=== PATIENT | female | born 1955 | race Hispanic/Latino ===

== ENCOUNTER 2017-02-20 12:24 | Emergency (ER) | payer OTHER ==
[2017-02-20] MEDS ORDERED: Sodium Chloride 0.9% 1,000 ML IV STA (12:40)
--- NOTE | 2017-02-20 12:45 | ED PDOC ---
Syncope/Near Syncope/Dizzyness Time Seen by Provider: 02/20/17 12:31 Chief Complaint (Nursing): Dizziness/Lightheaded Chief Complaint (Provider): Dizziness/Lightheaded History Per: Patient History/Exam Limitations: no limitations Onset/Duration Of Symptoms: Days (x3 days) Current Symptoms Are (Timing): Still Present Additional Complaint(s): 61 y/o female with a past medical history of hypertension and chronic obstructive pulmonary disease who presents to the emergency department via EMS after experiencing a syncopal episode at home associated with dizziness. Patient states she has been dizzy when standing and had fallen past out over the past three days. Reports she has been vomiting (had resolved since) with decreased intake of foods and fluids. States she has been taking hypertension and opioid pain medication. Denies diarrhea. Past Medical History Reviewed: Historical Data, Nursing Documentation, Vital Signs Vital Signs: Last Vital Signs Temp 97 F L 02/20/17 12:30 Pulse 94 H 02/20/17 12:30 Resp 20 02/20/17 12:30 BP 81/44 L 02/20/17 12:37 Pulse Ox 98 02/20/17 12:30 - Medical History PMH: Back Problems (chronic back pain), COPD, Hypercholesterolemia, Hyperlipidemia, Hypothyroidism - Surgical History Surgical History: Denies: CABG - Family History Family History: States: Unknown Family Hx - Immunization History Hx Tetanus Toxoid Vaccination: No Hx Influenza Vaccination: No Hx Pneumococcal Vaccination: No - Home Medications Home Medications: Ambulatory Orders Medication Instructions Recorded Ibuprofen [Motrin Tab] 600 mg PO Q8 PRN 08/04/16 Ibuprofen [Motrin] 600 mg PO Q8 PRN #30 tab 08/04/16 - Allergies Allergies/Adverse Reactions: Allergies Allergy/AdvReac Type Severity Reaction Status Date / Time No Known Allergies Allergy Verified 02/20/17 12:29 Review of Systems ROS Statement: Except As Marked, All Systems Reviewed And Found Negative Constitutional: Positive for: Other (Decreased appetite) Gastrointestinal: Positive for: Vomiting (had resolved since). Negative for: Diarrhea Neurological: Positive for: Dizziness Psych: Positive for: Other (Syncopal episode) Physical Exam - Reviewed Nursing Documentation Reviewed: Yes Vital Signs Reviewed: Yes - Physical Exam Appears: Positive for: Non-toxic, No Acute Distress Head Exam: Positive for: ATRAUMATIC, NORMOCEPHALIC Skin: Positive for: Normal Color, Warm, Dry ENT: Positive for: Normal ENT Inspection, Other (Dry Mucous Membranes). Negative for: Pharyngeal Erythema Neck: Positive for: Normal, Supple Cardiovascular/Chest: Positive for: Regular Rate, Rhythm. Negative for: Murmur Respiratory: Positive for: Normal Breath Sounds. Negative for: Accessory Muscle Use, Respiratory Distress Gastrointestinal/Abdominal: Positive for: Normal Exam, Soft. Negative for: Tenderness Extremity: Positive for: Normal ROM. Negative for: Pedal Edema, Swelling Neurologic/Psych: Positive for: Alert, Oriented, Gait (Steady). Negative for: Motor/Sensory Deficits, Other (No speech changes) - Laboratory Results Result Diagrams: 02/20/17 12:55 02/20/17 12:55 - ECG O2 Sat by Pulse Oximetry: 98 (RA) Pulse Ox Interpretation: Normal Medical Decision Making Medical Decision Making: Time: 12:31 Initial plan: --Head w/o contrast (CT) --Electrocardiogram Stat --COMP Metabolic Panel --Drug Screen, Urine Stat --ED Urine Dipstick (POC) Stat --EKG-ED (EDNURTX) Stat --CBC w. differential --Sodium Chloride 1,000 mls IV 1,000 mls/hr --Revaluation Advised pt of need for admission for hypotension, electrolyte abnormalities and syncope. Pt understands risks of leaving AMA including recurrent hypotension, syncope, head injury and . Agrees to return if sxs recurr and to f/u in clinic tomorrow. Pt advised to hold BP meds as well as opioids until seen by PMD Scribe Attestation: Documented by Alla Jimenez, acting as a scribe for Isidoro Thornton MD. Provider Scribe Attestation: All medical record entries made by the Scribe were at my direction and personally dictated by me. I have reviewed the chart and agree that the record accurately reflects my personal performance of the history, physical exam, medical decision making, and the department course for this patient. I have also personally directed, reviewed, and agree with the discharge instructions and disposition. Disposition - Clinical Impression Clinical Impression: Hypotension, Syncope, Electrolyte abnormality - Patient ED Disposition Is Patient to be Admitted: No - Disposition Disposition: Against Medical Advice Disposition Time: 14:31 Condition: FAIR Additional Instructions: Don't take blood pressure medication or Percocet until you see your doctor tomorrow. Instructions: Syncope (ED), Hypotension (ED)
[2017-02-20 13:01] LABS: BASO % 0.2 % (0.0-2.0); EOS # 0.1 K/uL (0.0-0.7); EOS % 0.9 % (0.0-4.0); HEMATOCRIT 36.1 % (34.0-47.0); LYMPH # 3.5 K/uL (1.0-4.3); LYMPH % 22.8 % (20.0-40.0); MEAN CELL VOLUME 89.1 fl (81.0-99.0); MEAN CORPUSCULAR HEMOGLOBIN 30.1 pg (27.0-31.0); MEAN CORPUSCULAR HGB CONC 33.8 g/dL (33.0-37.0); MEAN PLATELET VOLUME 7.1 fl (7.2-11.7); MONO % 6.5 % (0.0-10.0); NEUT # 10.6 K/uL (1.8-7.0); NEUT % 69.6 % (50.0-75.0); RED CELL DISTRIBUTION WIDTH 13.5 % (11.5-14.5); WHITE BLOOD COUNT 15.2 K/uL (4.8-10.8)
[2017-02-20 13:10] LABS: ALB/GLOB RATIO 1.2 (1.0-2.1); BILIRUBIN,TOTAL 0.8 mg/dl (0.2-1.3); CALCIUM 9.2 mg/dL (8.4-10.2); POTASSIUM 3.1 MMOL/L (3.6-5.0); TOTAL PROTEIN 7.2 G/DL (6.3-8.2)
--- NOTE | 2017-02-20 14:06 | CT ---
PROCEDURE: CT HEAD WITHOUT CONTRAST. HISTORY: r/o bleed COMPARISON: 11/06/2007 TECHNIQUE: Axial computed tomography images were obtained through the head/brain without intravenous contrast. Radiation dose: Total exam DLP = 651.35 mGy-cm. This CT exam was performed using one or more of the following dose reduction techniques: Automated exposure control, adjustment of the mA and/or kV according to patient size, and/or use of iterative reconstruction technique. FINDINGS: HEMORRHAGE: No intracranial hemorrhage. BRAIN: No mass effect or edema. No atrophy or chronic microvascular ischemic changes. VENTRICLES: Unremarkable. No hydrocephalus. CALVARIUM: Unremarkable. PARANASAL SINUSES: Unremarkable as visualized. No significant inflammatory changes. MASTOID AIR CELLS: Unremarkable as visualized. No inflammatory changes. OTHER FINDINGS: None. IMPRESSION: Normal CT of the Head. No intracranial mass, hemorrhage or evidence of acute infarct.
[2017-02-20] MEDS ORDERED: Potassium Chloride 20 mEq ER Tab PO ONE ×2 (14:19→14:52)
[2017-02-20 15:12] VITALS: BP 95/62; PULSE 80; RESP 18; TEMP 98; O2SAT 99
--- NOTE | 2017-02-21 08:40 | CARD ---
APPROVED REPORT EKG Measurement Heart [id number] CT 160P50 [id number] <Conclusion> Normal sinus rhythm Normal ECG
== END 2017-02-20 15:12 | disposition left against medical advice (07) ==
LOC: H.ER 12:24
DX: R55 Syncope and collapse (principal); I95.9 Hypotension, unspecified; E87.8 Other disorders of electrolyte and fluid balance, not elsewhere classified; E03.9 Hypothyroidism, unspecified; E78.00 Pure hypercholesterolemia, unspecified; J44.9 Chronic obstructive pulmonary disease, unspecified

== ENCOUNTER 2017-05-05 15:12 | Emergency (ER) | payer OTHER ==
[2017-05-05 15:18] VITALS: BP 89/57; PULSE 117; RESP 17; TEMP 98.6; O2SAT 94
[2017-05-05] MEDS ORDERED: Sodium Chloride 0.9% 1,000 ML IV STA (15:32)
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
[2017-05-05 16:24] LABS: BASO # 0.1 K/uL (0.0-0.2); BASO % 0.3 % (0.0-2.0); EOS # 0.1 K/uL (0.0-0.7); EOS % 0.3 % (0.0-4.0); HEMATOCRIT 39.6 % (34.0-47.0); LYMPH # 2.7 K/uL (1.0-4.3); LYMPH % 7.6 % (20.0-40.0); MEAN CELL VOLUME 88.1 fl (81.0-99.0); MEAN CORPUSCULAR HEMOGLOBIN 29.6 pg (27.0-31.0); MEAN CORPUSCULAR HGB CONC 33.6 g/dL (33.0-37.0); MEAN PLATELET VOLUME 7.3 fl (7.2-11.7); MONO # 1.9 K/uL (0.0-0.8); MONO % 5.4 % (0.0-10.0); NEUT # 30.4 K/uL (1.8-7.0); NEUT % 86.4 % (50.0-75.0); PLATELET COUNT 458 K/uL (130-400); RED CELL DISTRIBUTION WIDTH 13.6 % (11.5-14.5); WHITE BLOOD COUNT 35.2 K/uL (4.8-10.8)
[2017-05-05 16:37] LABS: ALB/GLOB RATIO 1.4 (1.0-2.1); BILIRUBIN,TOTAL 0.4 mg/dl (0.2-1.3); CALCIUM 9.4 mg/dL (8.4-10.2); POTASSIUM 3.3 MMOL/L (3.6-5.0); TOTAL PROTEIN 7.7 G/DL (6.3-8.2)
[2017-05-05] MEDS ORDERED: Potassium Chloride 20 mEq ER Tab PO STA (16:40)
[2017-05-05 16:55] LABS: NEUTROPHIL 84 % (42-75); TOTAL CELLS COUNTED 100
[2017-05-05 17:34] LABS: PARTIAL THROMBOPLASTIN TIME 28.4 Seconds (25.6-37.1)
--- NOTE | 2017-05-06 18:19 | CARD ---
APPROVED REPORT EKG Measurement Heart [id number] WA 132P72 [id number] <Conclusion> Sinus tachycardia Possible Left atrial enlargement Borderline ECG
== END 2017-05-05 18:48 | disposition left against medical advice (07) ==
LOC: H.ER 15:12
DX: K52.9 Noninfective gastroenteritis and colitis, unspecified (principal); F11.23 Opioid dependence with withdrawal; T40.2X5A Adverse effect of other opioids, initial encounter; Y92.9 Unspecified place or not applicable; F17.200 Nicotine dependence, unspecified, uncomplicated

== ENCOUNTER 2017-06-06 12:04 | Observation (INO) | payer OTHER ==
[2017-06-06] MEDS ORDERED: Morphine 4 MG/ML VIAL IV STA (12:29)
[2017-06-06] MEDS ORDERED: Sodium Chloride 0.9% 1,000 ML IV STA (12:29)
[2017-06-06 13:04] LABS: BASO # 0.1 K/uL (0.0-0.2); BASO % 1.3 % (0.0-2.0); EOS # 0.1 K/uL (0.0-0.7); EOS % 0.5 % (0.0-4.0); HEMATOCRIT 38.1 % (34.0-47.0); LYMPH # 2.6 K/uL (1.0-4.3); LYMPH % 23.3 % (20.0-40.0); MEAN CELL VOLUME 91.6 fl (81.0-99.0); MEAN CORPUSCULAR HEMOGLOBIN 30.4 pg (27.0-31.0); MEAN CORPUSCULAR HGB CONC 33.2 g/dL (33.0-37.0); MONO # 0.5 K/uL (0.0-0.8); MONO % 4.6 % (0.0-10.0); NEUT # 7.8 K/uL (1.8-7.0); NEUT % 70.3 % (50.0-75.0); RED CELL DISTRIBUTION WIDTH 14.4 % (11.5-14.5)
[2017-06-06 13:18] LABS: ALB/GLOB RATIO 1.3 (1.0-2.1); ALCOHOL SERUM < 10 mg/dl (0-10); ALKALINE PHOSPHATASE 76 U/L (38-126); ALT/SGPT 25 U/L (9-52); AST/SGOT 43 U/L (14-36); BILIRUBIN,TOTAL 0.4 mg/dl (0.2-1.3); BLOOD UREA NITROGEN 12 mg/dl (7-17); CALCIUM 9.7 mg/dL (8.4-10.2); CARBON DIOXIDE 20 mmol/L (22-30); CHLORIDE 106 mmol/L (98-107); GFR AFRICAN-AMERICAN > 60; GLUCOSE,RANDOM 85 mg/dL (65-105); POTASSIUM 4.1 MMOL/L (3.6-5.0); SODIUM 136 mmol/l (132-148); TOTAL PROTEIN 7.7 G/DL (6.3-8.2)
[2017-06-06 13:25] LABS: PARTIAL THROMBOPLASTIN TIME 42.6 Seconds (25.6-37.1)
--- NOTE | 2017-06-06 13:28 | ED PDOC ---
HPI: General Adult Time Seen by Provider: 06/06/17 12:20 Chief Complaint (Nursing): Back Pain Chief Complaint (Provider): back pain, possible tylenol OD History Per: Patient, Other (clinic Dr Figueroa) History/Exam Limitations: no limitations Current Symptoms Are (Timing): Still Present Recently: Treated By A Physician Additional Complaint(s): 61yo female history low back pain, on daily oxycodone (recently lowering dose from pain management), now presents from [facility] where she presented today c/ o ongoing low back pain and she took 48 extra strength tylenol tabs over the last 2 days due to pain. Denies intent to harm, states only took more tylenol because medication wasnt working. Past Medical History Reviewed: Historical Data, Nursing Documentation, Vital Signs Vital Signs: Last Vital Signs Temp 98.8 F 06/06/17 12:26 Pulse 64 06/06/17 13:49 Resp 18 06/06/17 12:32 BP 129/70 06/06/17 12:32 Pulse Ox 100 06/06/17 13:49 - Medical History PMH: Back Problems (chronic back pain), COPD, Hypercholesterolemia, Hyperlipidemia, Hypothyroidism - Surgical History Surgical History: Denies: CABG - Family History Family History: States: Unknown Family Hx - Social History Current smoker - smoking cessation education provided: Yes Drugs: Denies - Immunization History Hx Tetanus Toxoid Vaccination: No Hx Influenza Vaccination: No Hx Pneumococcal Vaccination: No - Home Medications Home Medications: Ambulatory Orders Medication Instructions Recorded Ibuprofen [Motrin Tab] 600 mg PO Q8 PRN 08/04/16 Ibuprofen [Motrin] 600 mg PO Q8 PRN #30 tab 08/04/16 - Allergies Allergies/Adverse Reactions: Allergies Allergy/AdvReac Type Severity Reaction Status Date / Time aspirin Allergy VOMITING Verified 05/05/17 15:15 Review of Systems ROS Statement: Except As Marked, All Systems Reviewed And Found Negative Constitutional: Negative for: Fever, Chills Cardiovascular: Negative for: Chest Pain, Palpitations Respiratory: Negative for: Cough, Shortness of Breath Gastrointestinal: Negative for: Nausea, Vomiting Musculoskeletal: Positive for: Back Pain. Negative for: Neck Pain, Shoulder Pain, Foot Pain Skin: Negative for: Rash, Lesions, Jaundice Neurological: Negative for: Weakness, Numbness, Headache Physical Exam - Reviewed Nursing Documentation Reviewed: Yes Vital Signs Reviewed: Yes - Physical Exam Appears: Positive for: Well, Non-toxic, No Acute Distress Head Exam: Positive for: ATRAUMATIC, NORMAL INSPECTION, NORMOCEPHALIC Skin: Positive for: Normal Color, Warm, DRY Eye Exam: Positive for: EOMI, Normal appearance, PERRL ENT: Positive for: Normal ENT Inspection Neck: Positive for: Normal, Painless ROM Cardiovascular/Chest: Positive for: Regular Rate, Rhythm Respiratory: Positive for: CNT, Normal Breath Sounds Gastrointestinal/Abdominal: Positive for: Bowel Sounds, Soft. Negative for: Tenderness, Guarding Back: Positive for: Decreased ROM, Muscle Spasm Extremity: Positive for: Normal ROM Neurologic/Psych: Positive for: Alert, Oriented. Negative for: Motor/Sensory Deficits - Laboratory Results Result Diagrams: 06/06/17 12:40 06/06/17 12:40 - ECG ECG: Positive for: Interpreted By Mo ECG Rhythm: Positive for: Normal ST Segment, Sinus Rhythm, Nonspecific Changes Rate: 64 O2 Sat by Pulse Oximetry: 100 Pulse Ox Interpretation: Normal - Radiology X-Ray: Interpreted by Mo X-Ray Interpretation: No Acute Disease Medical Decision Making Medical Decision Making: Will workup for unintentional tylenol overdose. Given reported amount of ingestion, high suspicion for toxicity. EKG, labs and CXR ordered. Overdose workup initiated. Pt does not require 1:1 as unintentional OD. labs reviewed ASA, etoh Neg LFTs mild elev AST INR 1.1 APAP level 37, given exposure is over 1-2 days, poison control recommends full course NAC with repeat APAP/LFTs/coags 2 hours before NAC completion for possible further course of NAC. Discussed with Ranjeet at [facility] ~130pm D/w Dr Sophia WHATLEY resident for admission. Given normal vitals, normal EKG and no need for cardiac monitoring, unintentional overdose (no intent to harm) for tylenol ingestion, admit med surg Dr Jason Fuentes. 2p- patient wants to leave AMA. Explained potentially life-threatening tylenol unintentional ingestion. Has poor insight and appears angry, is more concerned about her cats. Arranges for her to call a friend to care for cats. Stat psych consult requested for capacity. 240p- Dr Ha psychiatry examined patient and determined patient does have capacity to make decisions for self, can sign AMA. All risks/benefits/ alternatives explained to patient by several providers including myself, FP admitting team, and AMINA Boyce. Patient requesting to smoke cigarette, explained cannot leave ED w IV in place. Friend in room, attempting to convince to stay. Disposition - Clinical Impression Clinical Impression: Unintentional Tylenol overdose - Patient ED Disposition Is Patient to be Admitted: Yes Counseled Patient/Family Regarding: Studies Performed - Disposition Disposition Time: 13:35 Condition: GUARDED - Pt Status Changed To: Hospital Disposition Of: Inpatient - Admit Certification Admit to Inpatient:: After my assessment, the patient will require hospitalization for at least two midnights. This is because of the severity of symptoms shown, intensity of services needed, and/or the medical risk in this patient being treated as an outpatient. - POA Present On Arrival: None
[2017-06-06] MEDS ORDERED: DEXTROSE 5% IVPB ONE (13:39)
[2017-06-06] MEDS ORDERED: ACETYLCYSTEINE IVPB ONE (13:39)
[2017-06-06] MEDS ORDERED: WATER IVPB ONE (13:39)
--- NOTE | 2017-06-06 14:52 | CP.PCM.CON ---
History of Present Illness - History of Present Illness History of Present Illness: Psychiatry consult called for capacity to leave AMA 61yo female history low back pain, on daily oxycodone (recently lowering dose from pain management), presented from clinic where she presented today c/o ongoing low back pain and she took 48 extra strength tylenol tabs over the last 2 days due to pain. Denies intent to harm, states only took more tylenol because medication wasn't working. Patient denies having a history of psychiatric illness. She is able to understand the risks of taking excessive Tylenol include liver dysfunction and . She understands that she has a choice to receive treatment and that if she leaves the hospital, she may be putting her life at risk. She denies ideation to harm self or others. No hallucinations/delusions/psychosis. A + O x 3, no acute distress, mood "angry", affect- irritable, speech normal, thought process- linear/coherent, thought content- no delusions, insight-fair, judgment poor, no suicidal/homicidal ideation. Impression: 61 yo female who took an overdose of tylenol to treat her pain, not as a suicide attempt, has capacity to leave AMA. No acute psychiatric admission needed. No psychiatric medications indicated. Past Patient History - Infectious Disease Hx of Infectious Diseases: None - Past Social History Drugs: Denies - CARDIAC Hx Hypercholesterolemia: Yes - PULMONARY Hx Chronic Obstructive Pulmonary Disease (COPD): Yes - ENDOCRINE/METABOLIC Hx Hypothyroidism: Yes - MUSCULOSKELETAL/RHEUMATOLOGICAL Other/Comment: r shoulder fx, r forearm orif 2002 - PSYCHIATRIC Hx Substance Use: No - SURGICAL HISTORY Hx Coronary Artery Bypass Graft: No - ANESTHESIA Hx Anesthesia: Yes Hx Anesthesia Reactions: No Meds Allergies/Adverse Reactions: Allergies Allergy/AdvReac Type Severity Reaction Status Date / Time aspirin Allergy VOMITING Verified 05/05/17 15:15 - Medications Medications: Current Medications Acetylcysteine 8,160 mg/ (Dextrose) 240.8 mls @ 200 mls/hr IVPB ONCE ONE Stop: 06/06/17 14:51 Results - Vital Signs Recent Vital Signs: Last Vital Signs Temp 98.8 F 06/06/17 12:26 Pulse 64 06/06/17 13:49 Resp 18 06/06/17 12:32 BP 129/70 06/06/17 12:32 Pulse Ox 100 06/06/17 13:49 - Labs Result Diagrams: 06/06/17 12:40 06/06/17 12:40 Labs: Laboratory Results - last 24 hr 06/06/17 14:05 Urine Opiates Screen Positive H Urine Methadone Screen Negative Ur Barbiturates Screen Negative Ur Phencyclidine Scrn Negative Ur Amphetamines Screen Negative U Benzodiazepines Scrn Negative U Oth Cocaine Metabols Negative U Cannabinoids Screen Negative
[2017-06-06 17:00] VITALS: BP 144/79; PULSE 84; TEMP 97.5; O2SAT 99
[2017-06-06] MEDS ORDERED: Patient's Own Med (Mometasone/Formoterol [Dulera 200 Mcg/5 Mcg Inhaler] 2 PUFF) IH SCH (18:15)
[2017-06-06 19:40] VITALS: RESP 18
--- NOTE | 2017-06-06 19:57 | CP.PCM.HP ---
History of Present Illness - History of Present Illness History of Present Illness: 61 y/o female with PMHx of HTN, depression, opiate dependence admitted for acetaminophen toxicity (unintentional). Patient presented earlier today to [facility] regarding her back pain that has not been controlled since she ran out of Oxycodone 1 week ago. Patient has been taking 4 650mg tablets of Tylenol 4 times per day x 2 days and reported uncontrollable nausea and diarrhea without changes in urine/stool color. No other complaints. Denied fever/chills, headaches, changes in vision, CP/SOB/palpitations, Urinary symptoms, numbness/ tingling. Denies intent to harm, states only took more Tylenol because medication wasn't working. Poison control called by ED physician. Patient poor historian and uncooperative, pre-occupied with signing out AMA. History supplemented with eCw outpatient charts. PMD: [facility] PMHx: HTN, depression, opiate dependence, chronic low back pain Meds: As per chart Allergies: ASA Surgical history: BTL Broken Arm 2002 Bunion Removal 2004 Family history: unknown Social history: Tobacco Abuse since age of 17; 2 pack /day. Patient denies alcohol abuse, illicit drug use. ED course as follows: Normal vitals, Normal EKG ASA, etoh Neg LFTs mild elev AST INR 1.1 APAP level 37, given exposure is over 1-2 days, poison control recommended full course NAC with repeat APAP/LFTs/coags 2 hours before NAC completion for possible further course of NAC. ED Physician discussed with Ranjeet at [facility] ~130pm 2p- patient wanted to leave AMA. ED physician explained potentially life- threatening Tylenol unintentional ingestion. Stat psych consult requested for capacity. 240p- Dr Ha psychiatry examined patient and determined patient does have capacity to make decisions for self, can sign AMA. However, patient was convinced to stay by medical team and friend. Present on Admission - Present on Admission Any Indicators Present on Admission: No Review of Systems - Review of Systems Systems not reviewed;Unavailable: Uncooperative All systems: reviewed and no additional remarkable complaints except (mentioned in HPI) Past Patient History - Infectious Disease Hx of Infectious Diseases: None - Past Medical History & Family History Past Medical History?: Yes - Past Social History Smoking Status: Heavy Smoker > 10 Cigarettes Daily - CARDIAC Hx Hypercholesterolemia: Yes - PULMONARY Hx Respiratory Disorders: Yes - ENDOCRINE/METABOLIC Hx Hypothyroidism: Yes - MUSCULOSKELETAL/RHEUMATOLOGICAL Hx Falls: No Other/Comment: r shoulder fx, r forearm orif 2003 - PSYCHIATRIC Hx Substance Use: No - SURGICAL HISTORY Hx Coronary Artery Bypass Graft: No - ANESTHESIA Hx Anesthesia: Yes Hx Anesthesia Reactions: No Meds Allergies/Adverse Reactions: Allergies Allergy/AdvReac Type Severity Reaction Status Date / Time aspirin Allergy VOMITING Verified 05/05/17 15:15 Physical Exam - Constitutional Appears: Unkempt, Older Than Stated Age - Head Exam Head Exam: ATRAUMATIC, NORMAL INSPECTION, NORMOCEPHALIC - Eye Exam Eye Exam: Normal appearance - Respiratory Exam Respiratory Exam: Clear to Auscultation Bilateral, NORMAL BREATHING PATTERN - Cardiovascular Exam Cardiovascular Exam: REGULAR RHYTHM, RRR, +S1, +S2 - GI/Abdominal Exam GI & Abdominal Exam: Normal Bowel Sounds, Soft. absent: Distended, Tenderness - Extremities Exam Extremities exam: Positive for: normal inspection - Neurological Exam Neurological exam: Alert, Oriented x3 - Psychiatric Exam Psychiatric exam: Normal Affect, Normal Mood - Skin Skin Exam: Dry, Intact, Normal Color, Warm Results - Vital Signs Recent Vital Signs: Last Vital Signs Temp 97.5 F L 06/06/17 16:59 Pulse 84 06/06/17 16:59 Resp 18 06/06/17 18:28 BP 144/79 06/06/17 16:59 Pulse Ox 99 06/06/17 16:59 - Labs Result Diagrams: 06/06/17 12:40 06/06/17 20:44 Labs: Laboratory Results - last 24 hr 06/06/17 14:05 Urine Opiates Screen Positive H Urine Methadone Screen Negative Ur Barbiturates Screen Negative Ur Phencyclidine Scrn Negative Ur Amphetamines Screen Negative U Benzodiazepines Scrn Negative U Oth Cocaine Metabols Negative U Cannabinoids Screen Negative Assessment & Plan (1) Unintentional Tylenol overdose Status: Acute (2) Chronic back pain Status: Acute - Assessment and Plan (Free Text) Assessment: 61 y/o female with PMHx of HTN, depression, opiate dependence admitted for acetaminophen toxicity (unintentional) due to chronic back pain. LFTs mild elev AST, INR 1.1, APAP level 37. Hemodynamically stable. EKG normal. Plan: (1) Unintentional Tylenol overdose - Admit to Med/surg for monitoring and NAC course treatment - Repeat APAP/LFTs/Coags to determine further NAC treatment - Monitor vitals - Avoid acetaminophen usage - Encouraged patient to stay for treatment, patient uncooperative and decided to sign out AMA while on floor. All risks/benefits/alternatives explained to patient by several providers including myself, ED physician, and RN throughout the day. Patient verbalized understands and signed AMA form. Patient was evaluated earlier for capacity, which was determined she has. (2) Chronic back pain - NO ACETAMINOPHEN - Further recommendations via roof cement and paint maker helper (3) DVT Prophylaxis -scds
[2017-06-06 20:59] LABS: BILIRUBIN,TOTAL 0.3 mg/dl (0.2-1.3); POTASSIUM 4.9 MMOL/L (3.6-5.0); TOTAL PROTEIN 5.8 G/DL (6.3-8.2)
[2017-06-06 21:01] LABS: ALB/GLOB RATIO 1.1 (1.0-2.1)
[2017-06-07] MEDS ORDERED: Levothyroxine 75 MCG TAB PO SCH (07:30)
[2017-06-07] MEDS ORDERED: Fluticasone-Salmeterol 500-50mcg Diskus IH SCH (09:00)
[2017-06-07] MEDS ORDERED: Multivitamin With Minerals Tab PO SCH (09:00)
[2017-06-07] MEDS ORDERED: Patient's Own Med (Mv,Min10/Folic Acid/D3/Ala/Lut [Strovite One Caplet] 1 TAB) PO SCH (09:00)
--- NOTE | 2017-06-07 10:14 | CARD ---
APPROVED REPORT EKG Measurement Heart [id number] <Conclusion> Normal sinus rhythm Normal ECG
--- NOTE | 2017-06-07 11:50 | RAD ---
PROCEDURE: CHEST RADIOGRAPH, 1 VIEW HISTORY: unintentional OD COMPARISON: 06/16/2015 FINDINGS: LUNGS: Clear. PLEURA: No pneumothorax or pleural fluid seen. CARDIOVASCULAR: Normal. OSSEOUS STRUCTURES: No significant abnormalities. VISUALIZED UPPER ABDOMEN: Normal. OTHER FINDINGS: None. IMPRESSION: No active disease.
--- NOTE | 2017-06-07 12:11 | PQF GENQUE ---
Dr. Stephens, Is there an associated diagnosis to go along with the following clinical labs? : BUN:12->43 Creatinine:0.9->1.6 GFR (/Non-Af Amer): >60/>60->40/33 OR: Disagree ER: IVF's: .9 NS: received 1000 ccs/hr: duration one hour H and P; PMHx of HTN, depression, opiate dependence admitted for acetaminophen toxicity (unintentional) due to chronic back pain. LFTs mild elev AST, INR 1.1, APAP level 37. Hemodynamically stable. EKG normal. Plan: (1) Unintentional Tylenol overdose- Admit to Med/surg for monitoring and NAC course treatment- Repeat APAP/LFTs/Coags to determine further NAC treatment - Monitor vitals- Avoid acetaminophen usage - Encouraged patient to stay for treatment, patient uncooperative and decided to sign out AMA while on floor. All risks/benefits/alternatives explained to patient by several providers including myself, ED physician, and RN throughout the day. Patient verbalized understands and signed AMA form. Patient was evaluated earlier for capacity, which was determined she has. (2) Chronic back pain- NO ACETAMINOPHEN- Further recommendations via paint formulator This form is a permanent part of the medical record Clarification of your documentation is requested to better reflect the severity of illness and intensity of treatment of your patient. Indicators present [] Specify: [] [] Specify: [] [] Specify: [] [] Specify: [] Location in the medical record that reflects the above clinical findings: [] Treatment Provided: [] PHYSICIAN'S RESPONSE Based on your medical judgment of the clinical indicators outlined above please clarify the following: [] Practitioner response [] If unable to determine, please check the box, sign and date. Present On Admission (POA) Indicator: [] Present at the time of admission [] Not present at the time of admission [] Clinically Undetermined In responding to this query, please exercise your independent professional judgment. The fact that a question is asked does not imply that any particular answer is desired or expected. Thank you for your clarification on this documentation. If you have any questions please call. * Thank you, Aleksandra Street RN BSN ext. #[phone] MTDD
== END 2017-06-06 20:05 | disposition left against medical advice (07) ==
LOC: H.ER 12:04 → INTOOBSV 13:40 → H.ERHOLD 13:40 → H.MEDSURG1 16:50
PROVIDERS: ADMIT Family Medicine Geriatric Medicine; ATTEND Family Medicine Geriatric Medicine
DX: T39.1X1A Poisoning by 4-Aminophenol derivatives, accidental (unintentional), initial encounter (principal); J44.9 Chronic obstructive pulmonary disease, unspecified; I10 Essential (primary) hypertension; E03.9 Hypothyroidism, unspecified; R11.0 Nausea; R19.7 Diarrhea, unspecified; E78.00 Pure hypercholesterolemia, unspecified; E78.5 Hyperlipidemia, unspecified; F17.200 Nicotine dependence, unspecified, uncomplicated; G89.29 Other chronic pain; Z88.6 Allergy status to analgesic agent; F32.9 Major depressive disorder, single episode, unspecified; Z79.891 Long term (current) use of opiate analgesic
CPT/HCPCS: 71010; 80053; 80320; 80324; 80329; 80345; 80346; 80349; 80353; 80358; 80361; 83992; 85025; 85610; 85730; 93005; 96361; 96365; 96375; 99283; G0378; J0132; J7040; J7060

== ENCOUNTER 2017-09-01 15:52 | Emergency (ER) | payer OTHER ==
[2017-09-01 16:01] VITALS: RESP 16; TEMP 97.9; O2SAT 98
[2017-09-01 16:28] VITALS: BP 106/64; PULSE 81
--- NOTE | 2017-09-01 16:41 | ED PDOC ---
Syncope/Near Syncope/Dizziness Time Seen by Provider: 09/01/17 16:13 Chief Complaint (Nursing): Weakness/Neurological Deficit Chief Complaint (Provider): syncope History/Exam Limitations: no limitations Onset/Duration Of Symptoms: Days (since December) Number Of Syncopal Episodes: >3 Additional Complaint(s): Fainting episodes intermittent since December. She was directed by [facility] for further evaluation in ER due to similar fall just last night. She reports pain on upper back and neck due to fall and she take pain medications regularly for chronic pain. Has been in ER for same multiple times before. Pt repeatedly reports that she does not want to stay in hospital for an admission, but is willing to have an ER workup. She reports that she has multiple bruises on back and legs from her falls. PMD [facility] [place] Against Medical Advice - AMA Patient Left Against Medical Advice: The patient declines admission to the hospital and wishes to leave the Emergency Department. This action is against my medical advice. This decision was made with informed refusal. The patient was told that admission to the hospital is necessary. Explanation of the reasons why were discussed. The risks of leaving were explained to the patient and include, but are not limited to, worsening of known or currently unknown conditions, permanent disability and from undiagnosed or untreated conditions. The patient has the capacity to make this informed decision and understands my explanation of the current medical problem and risks of leaving. The patient voluntarily accepts these risks and signed an AMA form documenting our conversation. The patient was given the opportunity to ask questions and reconsider. The patient was encouraged to return to the Emergency Department at any time for further care. Past Medical History Reviewed: Historical Data, Nursing Documentation, Vital Signs Vital Signs: Last Vital Signs Temp 97.9 F 09/01/17 15:55 Pulse 81 09/01/17 16:14 Resp 16 09/01/17 16:14 BP 106/64 09/01/17 16:14 Pulse Ox 98 09/01/17 16:14 - Medical History PMH: Back Problems (chronic back pain), COPD, Hypercholesterolemia, Hyperlipidemia, Hypothyroidism - Surgical History Surgical History: Denies: CABG - Family History Family History: States: Unknown Family Hx - Social History Current smoker - smoking cessation education provided: Yes - Immunization History Hx Tetanus Toxoid Vaccination: No Hx Influenza Vaccination: No Hx Pneumococcal Vaccination: No - Home Medications Home Medications: Ambulatory Orders Medication Instructions Recorded Albuterol Sulfate [Proventil Hfa] 2 puff IH Q4H PRN 06/06/17 Enalapril Maleate [Vasotec] 5 mg PO DAILY 06/06/17 Famotidine [Pepcid] 20 mg PO DAILY 06/06/17 Levothyroxine [Synthroid] 75 mcg PO DAILY 06/06/17 Lovastatin [Lovastatin] 10 mg PO DAILY 06/06/17 Mometasone/Formoterol [Dulera 200 2 puff IH Q12H 06/06/17 Mcg/5 Mcg Inhaler] Mv,Min10/Folic Acid/D3/Ala/Lut 1 tab PO DAILY 06/06/17 [Strovite One Caplet] oxyCODONE [oxyCODONE Immediate 30 mg PO TID 06/06/17 Release Tab] tiZANidine [Zanaflex] 4 mg PO TID 06/06/17 Nitrofurantoin Macrocrystals 100 mg PO BID #14 cap 09/02/17 [Macrobid] - Allergies Allergies/Adverse Reactions: Allergies Allergy/AdvReac Type Severity Reaction Status Date / Time aspirin Allergy VOMITING Verified 05/05/17 15:15 Review of Systems ROS Statement: Except As Marked, All Systems Reviewed And Found Negative (and as per HPI) Constitutional: Positive for: Weakness, Malaise. Negative for: Fever, Chills Cardiovascular: Positive for: Light Headedness Musculoskeletal: Positive for: Neck Pain, Back Pain Skin: Positive for: Bruising Neurological: Negative for: Weakness, Numbness Physical Exam - Reviewed Nursing Documentation Reviewed: Yes Vital Signs Reviewed: Yes - Physical Exam Appears: Positive for: Non-toxic, No Acute Distress Head Exam: Positive for: ATRAUMATIC, NORMOCEPHALIC Skin: Positive for: Normal Color (no bruises visible on back), Warm, Dry Eye Exam: Positive for: EOMI, PERRL ENT: Positive for: Pharynx Is (clear) Neck: Positive for: Supple, Trachea Midline Cardiovascular/Chest: Positive for: Regular Rate, Rhythm, Chest Non Tender. Negative for: Murmur Respiratory: Positive for: Normal Breath Sounds. Negative for: Wheezing Gastrointestinal/Abdominal: Positive for: Soft. Negative for: Tenderness Back: Positive for: Vertebral Tenderness (diffuse midline and paraspinal to minimal palpation) Extremity: Positive for: Normal ROM. Negative for: Deformity Lymphatic: Negative for: Adenopathy Neurologic/Psych: Positive for: Alert, Mood/Affect (anxious mood, angry affect) . Negative for: Motor/Sensory Deficits - Laboratory Results Result Diagrams: 09/01/17 16:45 09/01/17 17:00 - ECG O2 Sat by Pulse Oximetry: 98 Disposition - Clinical Impression Clinical Impression: Syncope Counseled Patient/Family Regarding: Studies Performed - Disposition Disposition: Against Medical Advice Disposition Time: 17:00 Condition: UNKNOWN Forms: [employer] ([employer])
[2017-09-01 17:11] LABS: BASO # 0.1 K/uL (0.0-0.2); BASO % 0.8 % (0.0-2.0); EOS # 0.1 K/uL (0.0-0.7); EOS % 0.9 % (0.0-4.0); HEMATOCRIT 38.1 % (34.0-47.0); LYMPH # 3.5 K/uL (1.0-4.3); LYMPH % 24.1 % (20.0-40.0); MEAN CELL VOLUME 87.3 fl (81.0-99.0); MEAN CORPUSCULAR HEMOGLOBIN 28.8 pg (27.0-31.0); MEAN PLATELET VOLUME 6.9 fl (7.2-11.7); MONO # 0.9 K/uL (0.0-0.8); MONO % 6.1 % (0.0-10.0); NEUT # 9.9 K/uL (1.8-7.0); NEUT % 68.1 % (50.0-75.0); RED CELL DISTRIBUTION WIDTH 14.5 % (11.5-14.5); WHITE BLOOD COUNT 14.5 K/uL (4.8-10.8)
[2017-09-01 17:21] LABS: ALB/GLOB RATIO 1.4 (1.0-2.1); ALCOHOL SERUM < 10 mg/dl (0-10); ALKALINE PHOSPHATASE 67 U/L (38-126); ALT/SGPT 32 U/L (9-52); AST/SGOT 31 U/L (14-36); BILIRUBIN,TOTAL 0.5 mg/dl (0.2-1.3); BLOOD UREA NITROGEN 21 mg/dl (7-17); CALCIUM 9.4 mg/dL (8.4-10.2); CARBON DIOXIDE 26 mmol/L (22-30); CHLORIDE 85 mmol/L (98-107); GFR AFRICAN-AMERICAN 55; GLUCOSE,RANDOM 83 mg/dL (65-105); MAGNESIUM 2.2 MG/DL (1.6-2.3); PHOSPHOROUS 3.5 mg/dl (2.5-4.5); POTASSIUM 3.7 MMOL/L (3.6-5.0); SODIUM 123 mmol/l (132-148); TOTAL PROTEIN 7.6 G/DL (6.3-8.2)
[2017-09-01 17:33] LABS: RBC URINE 3 /hpf (0-3); URINE BACTERIA MANY (<OCC); URINE BILIRUBIN NEGATIVE (NEGATIVE); URINE BLOOD NEGATIVE (NEGATIVE); URINE COLOR YELLOW (YELLOW); URINE GLUCOSE (UA) NEG (Normal); URINE KETONE TRACE mg/dL (NEGATIVE); URINE LEUKOCYTE ESTERASE TRACE Leu/uL (Negative); URINE PROTEIN NEGATIVE (NEGATIVE); URINE UROBILINOGEN 0.2-1.0 mg/dL (0.2-1.0); WBC URINE 4 /hpf (0-5)
--- NOTE | 2017-09-01 17:35 | CT ---
PROCEDURE: CT HEAD WITHOUT CONTRAST. HISTORY: fall head injury COMPARISON: Comparison made with CT scan brain dated 02/20/2017 TECHNIQUE: Axial computed tomography images were obtained through the head/brain without intravenous contrast. Radiation dose: Total exam DLP = mGy-cm. This CT exam was performed using one or more of the following dose reduction techniques: Automated exposure control, adjustment of the mA and/or kV according to patient size, and/or use of iterative reconstruction technique. FINDINGS: HEMORRHAGE: No acute parenchymal, subarachnoid or extra-axial hemorrhage. BRAIN: Suspect minimal chronic periventricular white matter ischemic changes. Mild generalized volume loss. VENTRICLES: No obstructive hydrocephalus CALVARIUM: There are no acute calvarial fractures. PARANASAL SINUSES: Unremarkable as visualized. No significant inflammatory changes. MASTOID AIR CELLS: Unremarkable as visualized. No inflammatory changes. OTHER FINDINGS: Orbits and contents grossly unremarkable. IMPRESSION: No acute intracranial hemorrhage. Mild volume loss.
--- NOTE | 2017-09-01 18:24 | CT ---
PROCEDURE: CT scan of the cervical spine dated 09/01/2017 HISTORY: Status post fall with neck pain COMPARISON: None available. TECHNIQUE: Axial computed tomography images were obtained of the cervical spine without the use of intravenous contrast. Coronal and sagittal reformatted images were created and reviewed. Radiation dose: Total exam DLP = 363.46 mGy-cm. This CT exam was performed using one or more of the following dose reduction techniques: Automated exposure control, adjustment of the mA and/or kV according to patient size, and/or use of iterative reconstruction technique. FINDINGS: VERTEBRAE: Current study reveals no acute compression fractures no retropulsed fragments. Vertebral bodies exhibit relatively normal stature of. There is mild reversal of the normal upper cervical lordosis with very minimal posterior subluxation of C4 over C5 exacerbated in appearance by a prominent osteophyte arising from the posterior inferior corner of the C4 segment. . Vertebral bodies otherwise exhibit normal alignment. Facets normally aligned. DISCS/SPINAL CANAL/NEURAL FORAMINA: Mild multilevel degenerative spondylosis. At the C2-C3 level, there is adequate disc height. Minimal broad-based bulge of the posterior annulus. Slight degenerative squaring of the uncovertebral joints. Facets are hypertrophic right greater than left. Central canal appears adequate. Exit foramina are narrowed on the right and adequate on the left. At the C3-C4 level, there is mild disc space narrowing. Small broad-based bulge of the posterior annulus is present. The uncovertebral joints exhibit mild degenerative squaring. There is moderate to fairly significant right-sided facet arthropathy. Mild left facet arthropathy. Central canal appears adequate. Right exit foramen is slightly narrowed. Left exit foramen is adequate. At the C4-C5 level, there is disc space narrowing. Small broad-based osteophytic ridge disc complex contiguous with mildly overgrown uncovertebral joints. Facets are hypertrophic. Central canal is slightly narrowed. Exit foramina are stenotic bilaterally. At the C5-C6 level, there is minor disc space narrowing. No disc herniation. Facets are hypertrophic bilaterally. Exit foramina appear adequate. At the C6-C7 level, there is adequate disc space height the dome minimal broad-based disc ridge complex. Mild hypertrophic uncovertebral joints right greater than left. Changes result in right-sided foraminal stenosis the. . Central canal appears marginal to adequate. Left exit foramen adequate. PARASPINAL SOFT TISSUES: Prevertebral and paraspinal soft tissues unremarkable. OTHER FINDINGS: Biapical of chronic pleural thickening and parenchymal scarring. Underlying emphysema. IMPRESSION: No acute fracture seen. Mild to moderate degenerative spondylosis as detailed above. Emphysematous changes seen in the upper lobes.
--- NOTE | 2017-09-02 08:14 | CARD ---
APPROVED REPORT EKG Measurement Heart [id number] <Conclusion> Normal sinus rhythm Normal ECG
== END 2017-09-01 18:00 | disposition left against medical advice (07) ==
LOC: H.ER 15:52
DX: R55 Syncope and collapse (principal); R53.1 Weakness; E03.9 Hypothyroidism, unspecified; E78.00 Pure hypercholesterolemia, unspecified; G89.29 Other chronic pain; J44.9 Chronic obstructive pulmonary disease, unspecified

== ENCOUNTER 2017-09-02 11:45 | Emergency (ER) | payer OTHER ==
[2017-09-02 12:09] VITALS: BP 91/54; PULSE 87; RESP 18; TEMP 98; O2SAT 98
--- NOTE | 2017-09-02 13:12 | ED PDOC ---
HPI: General Adult Time Seen by Provider: 09/02/17 12:08 Chief Complaint (Nursing): Female Genitourinary History Per: Patient Additional Complaint(s): Pt. states she was asked to return to ED by Dr. Figueroa to return to ED as she has an "infection in her private parts." Pt. states she was in ED yesterday as she was feeling weak and passed out. Reports that weakness has improved. Also states she signed out AMA before obtaining any results yesterday. Currently without any symptoms. Denies fever, back pain, flank pain, abdominal pain, dysuria, hematuria. Against Medical Advice - AMA Patient Left Against Medical Advice: The patient declines admission to the hospital and wishes to leave the Emergency Department. This action is against my medical advice. This decision was made with informed refusal. The patient was told that admission to the hospital is necessary. Explanation of the reasons why were discussed. The risks of leaving were explained to the patient and include, but are not limited to, worsening of known or currently unknown conditions, permanent disability and from undiagnosed or untreated conditions. The patient has the capacity to make this informed decision and understands my explanation of the current medical problem and risks of leaving. The patient voluntarily accepts these risks and signed an AMA form documenting our conversation. The patient was given the opportunity to ask questions and reconsider. The patient was encouraged to return to the Emergency Department at any time for further care. Past Medical History Reviewed: Historical Data, Nursing Documentation, Vital Signs Vital Signs: Last Vital Signs Temp 98 F 09/02/17 12:04 Pulse 87 09/02/17 12:04 Resp 18 09/02/17 12:04 BP 91/54 L 09/02/17 12:04 Pulse Ox 98 09/02/17 12:04 - Medical History PMH: Back Problems (chronic back pain), COPD, Hypercholesterolemia, Hyperlipidemia, Hypothyroidism - Surgical History Surgical History: Denies: CABG - Family History Family History: States: Unknown Family Hx - Immunization History Hx Tetanus Toxoid Vaccination: No Hx Influenza Vaccination: No Hx Pneumococcal Vaccination: No - Home Medications Home Medications: Ambulatory Orders Medication Instructions Recorded Albuterol Sulfate [Proventil Hfa] 2 puff IH Q4H PRN 06/06/17 Enalapril Maleate [Vasotec] 5 mg PO DAILY 06/06/17 Famotidine [Pepcid] 20 mg PO DAILY 06/06/17 Levothyroxine [Synthroid] 75 mcg PO DAILY 06/06/17 Lovastatin [Lovastatin] 10 mg PO DAILY 06/06/17 Mometasone/Formoterol [Dulera 200 2 puff IH Q12H 06/06/17 Mcg/5 Mcg Inhaler] Mv,Min10/Folic Acid/D3/Ala/Lut 1 tab PO DAILY 06/06/17 [Strovite One Caplet] oxyCODONE [oxyCODONE Immediate 30 mg PO TID 06/06/17 Release Tab] tiZANidine [Zanaflex] 4 mg PO TID 06/06/17 Nitrofurantoin Macrocrystals 100 mg PO BID #14 cap 09/02/17 [Macrobid] - Allergies Allergies/Adverse Reactions: Allergies Allergy/AdvReac Type Severity Reaction Status Date / Time aspirin Allergy VOMITING Verified 05/05/17 15:15 Review of Systems ROS Statement: Except As Marked, All Systems Reviewed And Found Negative Physical Exam - Physical Exam Appears: Positive for: Well, Non-toxic, No Acute Distress Head Exam: Positive for: ATRAUMATIC, NORMAL INSPECTION, NORMOCEPHALIC Skin: Positive for: Normal Color, Warm. Negative for: Rash Eye Exam: Positive for: Normal appearance Cardiovascular/Chest: Positive for: Regular Rate, Rhythm Respiratory: Positive for: CNT, Normal Breath Sounds Gastrointestinal/Abdominal: Positive for: Normal Exam, Soft. Negative for: Tenderness Back: Positive for: Normal Inspection. Negative for: L CVA Tenderness, R CVA Tenderness Neurologic/Psych: Positive for: Alert, Oriented. Negative for: Aphasia, Facial Droop - ECG O2 Sat by Pulse Oximetry: 98 - Progress ED Course And Treament: Case d/w Dr. Rahul Woodward, FP resident, and confirms that he asked pt. to return to ED for further evaluation as pt. had UTI and elevated WBC. Pt. informed that further testing will need to be done but refused and wants to leave ED as she "hates hospitals." Pt. states she just wants to take oral antibiotics and does not want anymore blood work to be done. Macrobid 100mg PO ordered. Disposition - Clinical Impression Clinical Impression: UTI (urinary tract infection), Left against medical advice - Patient ED Disposition Is Patient to be Admitted: No - Disposition Referrals: [facility] [Outside] Disposition: Against Medical Advice Disposition Time: 13:00 Condition: STABLE Prescriptions: Nitrofurantoin Macrocrystals [Macrobid] 100 mg PO BID #14 cap Instructions: Urinary Tract Infection in Women (ED) Forms: [employer] (Persian) Print Language: URDU
== END 2017-09-02 13:08 | disposition left against medical advice (07) ==
LOC: H.ER 11:45
DX: N39.0 Urinary tract infection, site not specified (principal); Z53.29 Procedure and treatment not carried out because of patient's decision for other reasons

== ENCOUNTER 2018-02-21 11:06 | Emergency (ER) | payer OTHER ==
[2018-02-21 11:09] VITALS: BP 100/66; PULSE 98; RESP 20; TEMP 97.7; O2SAT 98
--- NOTE | 2018-02-21 12:20 | ED PDOC ---
HPI: Back Time Seen by Provider: 02/21/18 12:11 Chief Complaint (Nursing): Back Pain Chief Complaint (Provider): Chronic Back Pain History Per: Patient History/Exam Limitations: no limitations Onset/Duration Of Symptoms: Other (chronic, x1 month) Current Symptoms Are (Timing): Still Present Quality Of Discomfort: "Pain" Previous Symptoms: Chronic Pain Associated Symptoms: None Exacerbating Factor(s): Nothing Additional Complaint(s): Catie Cruz is a 62 year old female with a past medical history of hyperlipidemia, diabetes, and hypothyroidism, who is presenting to the ED with complaints of chronic back pain, associated with episodes of syncope, onset 1 month ago. Patient reports that she takes Oxycodone for pain management but recently ran out of medications. She states that she received a phone call from a nurse at this hospital, but is unable to recall any name. She mentions that she was contacted by a pain management doctor, Thaddeus Rider, but she states he is not her PMD. Patient reports her last episode of loss of consciousness was prior to arrival where she was unconscious for a few minutes. She denies any injury, trauma, numbness, or tingling. PMD: none provided Past Medical History Reviewed: Historical Data, Nursing Documentation, Vital Signs Vital Signs: Last Vital Signs Temp 97.7 F 02/21/18 11:08 Pulse 98 H 02/21/18 11:08 Resp 20 02/21/18 11:08 BP 100/66 02/21/18 11:08 Pulse Ox 98 02/21/18 11:08 - Medical History PMH: Back Problems (chronic back pain), COPD, Hypercholesterolemia, Hyperlipidemia, Hypothyroidism - Surgical History Surgical History: Denies: CABG - Family History Family History: States: Unknown Family Hx - Social History Current smoker - smoking cessation education provided: Yes SMOKER/PACKS PER DAY:: 1 - Immunization History Hx Tetanus Toxoid Vaccination: No Hx Influenza Vaccination: No Hx Pneumococcal Vaccination: No - Home Medications Home Medications: Ambulatory Orders Medication Instructions Recorded Albuterol Sulfate [Proventil Hfa] 2 puff IH Q4H PRN 06/06/17 Enalapril Maleate [Vasotec] 5 mg PO DAILY 06/06/17 Famotidine [Pepcid] 20 mg PO DAILY 06/06/17 Levothyroxine [Synthroid] 75 mcg PO DAILY 06/06/17 Lovastatin [Lovastatin] 10 mg PO DAILY 06/06/17 Mometasone/Formoterol [Dulera 200 2 puff IH Q12H 06/06/17 Mcg/5 Mcg Inhaler] Mv,Min10/Folic Acid/D3/Ala/Lut 1 tab PO DAILY 06/06/17 [Strovite One Caplet] oxyCODONE [oxyCODONE Immediate 30 mg PO TID 06/06/17 Release Tab] tiZANidine [Zanaflex] 4 mg PO TID 06/06/17 Nitrofurantoin Macrocrystals 100 mg PO BID #14 cap 09/02/17 [Macrobid] - Allergies Allergies/Adverse Reactions: Allergies Allergy/AdvReac Type Severity Reaction Status Date / Time aspirin Allergy VOMITING Verified 02/21/18 11:09 Review of Systems ROS Statement: Except As Marked, All Systems Reviewed And Found Negative Musculoskeletal: Positive for: Back Pain Neurological: Positive for: Other ((+) loss of consciousness, (-) tingling). Negative for: Numbness Physical Exam - Reviewed Nursing Documentation Reviewed: Yes Vital Signs Reviewed: Yes - Physical Exam Appears: Positive for: Non-toxic, No Acute Distress Head Exam: Positive for: ATRAUMATIC, NORMAL INSPECTION, NORMOCEPHALIC Skin: Positive for: Normal Color Eye Exam: Positive for: Normal appearance Neck: Positive for: Normal, Painless ROM Cardiovascular/Chest: Positive for: Regular Rate, Rhythm. Negative for: Murmur Respiratory: Positive for: Decreased Breath Sounds, Other (distant breath sounds ). Negative for: Respiratory Distress Pulses-Carotid (L): 2+ Pulses-Carotid (R): 2+ Pulses-Radial (L): 2+ Pulses-Radial (R): 2+ Back: Positive for: Vertebral Tenderness (tenderness to palpation, L5-L6 region ; pt denies any past or recent trauma), Other Extremity: Positive for: Normal ROM. Negative for: Tenderness, Pedal Edema, Calf Tenderness, Capillary Refill, Deformity, Swelling Neurologic/Psych: Positive for: Alert, Oriented. Negative for: Motor/Sensory Deficits - ECG O2 Sat by Pulse Oximetry: 98 (RA) Pulse Ox Interpretation: Normal Medical Decision Making Medical Decision Making: Time: 12:17 Plan: --Tylenol 650 mg PO (PT INDICATED VERBALLY THAT IF ALL SHE WAS GIVEN WAS A RX FOR TYLENOL, SHE WOULD JUST SWALLOW THE ENTIRE BOTTLE; I THUS DID NOT PROVIDE A RX BUT DID PROVIDE A REFERRAL) Scribe Attestation: Documented by Olga Salmeron, acting as a scribe for Brian Corrales PA-C Provider Scribe Attestation: All medical record entries made by the Scribe were at my direction and personally dictated by me. I have reviewed the chart and agree that the record accurately reflects my personal performance of the history, physical exam, medical decision making, and the department course for this patient. I have also personally directed, reviewed, and agree with the discharge instructions and disposition. Disposition - Clinical Impression Clinical Impression: Chronic back pain - Patient ED Disposition Is Patient to be Admitted: No Counseled Patient/Family Regarding: Diagnosis, Need For Followup, Smoking Cessation - Disposition Referrals: [facility] [Outside] Disposition: Routine/Home Disposition Time: 13:03 Condition: GOOD Additional Instructions: Follow up at [facility] Instructions: Back Exercises, Back Stretches Standing or Seated, Back Extension Exercises, Back Precautions Forms: [employer] Connect (Gambian)
== END 2018-02-21 12:58 | disposition home or self-care (01) ==
LOC: H.ER 11:06
DX: M54.9 Dorsalgia, unspecified (principal); G89.29 Other chronic pain; F17.210 Nicotine dependence, cigarettes, uncomplicated; J44.9 Chronic obstructive pulmonary disease, unspecified; E03.9 Hypothyroidism, unspecified; E78.00 Pure hypercholesterolemia, unspecified

== ENCOUNTER 2018-03-20 13:52 | Emergency (ER) | payer OTHER ==
[2018-03-20 14:05] VITALS: BP 138/67; PULSE 110; RESP 20; TEMP 97.5; O2SAT 100
--- NOTE | 2018-03-20 15:27 | ED PDOC ---
HPI: General Adult Time Seen by Provider: 03/20/18 14:07 Chief Complaint (Nursing): Back Pain Chief Complaint (Provider): Back Pain History Per: Patient History/Exam Limitations: no limitations Onset/Duration Of Symptoms: Days (x 20 years) Current Symptoms Are (Timing): Still Present Additional Complaint(s): 62 year old female presents to the ED with chronic lower back pain that began 20 years ago. Patient describes pain as "severe". 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 At this time, she is only requesting pain medication for her back and has no other medical complaints. PMD: [facility] Past Medical History Reviewed: Historical Data, Nursing Documentation, Vital Signs Vital Signs: Last Vital Signs Temp 97.5 F L 03/20/18 14:04 Pulse 110 H 03/20/18 14:04 Resp 20 03/20/18 14:04 BP 138/67 03/20/18 14:04 Pulse Ox 100 03/20/18 15:32 - Medical History PMH: Back Problems (chronic back pain), COPD, Hypercholesterolemia, Hyperlipidemia, Hypothyroidism - Surgical History Other surgeries: right arm fracture surgery, tubal ligation - Family History Family History: States: No Known Family Hx - Living Arrangements Living Arrangements: With Family - Social History Current smoker - smoking cessation education provided: Yes Alcohol: None Drugs: Denies - Home Medications Home Medications: Ambulatory Orders Medication Instructions Recorded Albuterol Sulfate [Proventil Hfa] 2 puff IH Q4H PRN 06/06/17 Enalapril Maleate [Vasotec] 5 mg PO DAILY 06/06/17 Famotidine [Pepcid] 20 mg PO DAILY 06/06/17 Levothyroxine [Synthroid] 75 mcg PO DAILY 06/06/17 Lovastatin [Lovastatin] 10 mg PO DAILY 06/06/17 Mometasone/Formoterol [Dulera 200 2 puff IH Q12H 06/06/17 Mcg/5 Mcg Inhaler] Mv,Min10/Folic Acid/D3/Ala/Lut 1 tab PO DAILY 06/06/17 [Strovite One Caplet] oxyCODONE [oxyCODONE Immediate 30 mg PO TID 06/06/17 Release Tab] tiZANidine [Zanaflex] 4 mg PO TID 06/06/17 Nitrofurantoin Macrocrystals 100 mg PO BID #14 cap 09/02/17 [Macrobid] Cyclobenzaprine [Cyclobenzaprine 10 mg PO TID PRN #20 tab 03/20/18 HCl] Naproxen [Naprosyn] 500 mg PO BID #20 tab 03/20/18 - Allergies Allergies/Adverse Reactions: Allergies Allergy/AdvReac Type Severity Reaction Status Date / Time aspirin Allergy VOMITING Verified 03/20/18 14:02 Review of Systems ROS Statement: Except As Marked, All Systems Reviewed And Found Negative Constitutional: Negative for: Fever Gastrointestinal: Negative for: Nausea, Vomiting Genitourinary Female: Negative for: Dysuria, Frequency, Incontinence, Hematuria Musculoskeletal: Positive for: Back Pain (chronic, lower) Neurological: Negative for: Weakness, Numbness, Incoordination Physical Exam - Reviewed Nursing Documentation Reviewed: Yes Vital Signs Reviewed: Yes - Physical Exam Appears: Positive for: Well, Non-toxic, No Acute Distress Head Exam: Positive for: ATRAUMATIC, NORMOCEPHALIC Skin: Positive for: Normal Color, Warm, Dry. Negative for: Rash Eye Exam: Positive for: Normal appearance Neck: Positive for: Normal Cardiovascular/Chest: Positive for: Regular Rate, Rhythm. Negative for: Murmur Respiratory: Positive for: Normal Breath Sounds. Negative for: Respiratory Distress Back: Positive for: Vertebral Tenderness (diffuse to lower lumbar region), Other (negative bilateral straight leg raise) Extremity: Positive for: Normal ROM. Negative for: Deformity Neurologic/Psych: Positive for: Alert, Oriented, Gait (steady). Negative for: Motor/Sensory Deficits - ECG O2 Sat by Pulse Oximetry: 100 (RA) Pulse Ox Interpretation: Normal Medical Decision Making Medical Decision Making: Time; 15:27 Impression: chronic lower back pain Initial Plan: --Flexeril 10 mg PO --Toradol 30 mg IM --Tylenol 975 mg PO Rx given for naprosyn and flexeril. Patient was referred to pain management for follow up. Scribe Attestation: Documented by China Mena, acting as a scribe for Dinora Escobar PA-C Provider Scribe Attestation: All medical record entries made by the Scribe were at my direction and personally dictated by me. I have reviewed the chart and agree that the record accurately reflects my personal performance of the history, physical exam, medical decision making, and the department course for this patient. I have also personally directed, reviewed, and agree with the discharge instructions and disposition. Disposition - Clinical Impression Clinical Impression: Chronic low back pain - Patient ED Disposition Is Patient to be Admitted: No Counseled Patient/Family Regarding: Diagnosis, Need For Followup, Rx Given, Smoking Cessation - Disposition Referrals: Arnulfo Anders MD [Staff Provider] - Disposition: Routine/Home Disposition Time: 15:52 Condition: STABLE Additional Instructions: Take rx meds as directed. Follow up with pain management. Prescriptions: Cyclobenzaprine [Cyclobenzaprine HCl] 10 mg PO TID PRN #20 tab PRN Reason: Muscle Spasm Naproxen [Naprosyn] 500 mg PO BID #20 tab Instructions: Chronic Pain, Low Back Pain in Adults Forms: [employer] Connect (Japanese)
== END 2018-03-20 15:57 | disposition home or self-care (01) ==
LOC: H.ER 13:52
DX: M54.5 Low back pain (principal); G89.29 Other chronic pain; E03.9 Hypothyroidism, unspecified; E78.00 Pure hypercholesterolemia, unspecified; F17.200 Nicotine dependence, unspecified, uncomplicated; J44.9 Chronic obstructive pulmonary disease, unspecified
CPT/HCPCS: 96372; 99283; J1885

== ENCOUNTER 2019-04-06 10:01 | Inpatient (IN) | payer OTHER ==
[2019-04-06 10:08] VITALS: BMI 19.7
[2019-04-06] MEDS ORDERED: Sodium Chloride 0.9% 1,000 ML IV STA ×2 (11:01→13:11)
[2019-04-06] MEDS ORDERED: Iohexol 240 (50 ml) PO ONE (11:04)
--- NOTE | 2019-04-06 11:06 | ED PDOC ---
HPI: Abdomen Time Seen by Provider: 04/06/19 10:35 Chief Complaint (Nursing): GI Problem Chief Complaint (Provider): Abd pain History Per: Patient History/Exam Limitations: no limitations Onset/Duration Of Symptoms: Days () Additional Complaint(s): Pt. with diffuse abd pain since . Started after having beef stew Tu. Nausea, vomit, nonbloody with it. No stool movement for 6 days. No chest pain, weakness, headache, dizziness, fever, cough, dyspnea, leg pain. No dizziness. Past Medical History Reviewed: Nursing Documentation, Vital Signs Vital Signs: Last Vital Signs Temp 98.6 F 04/06/19 10:07 Pulse 103 H 04/06/19 10:07 Resp 16 04/06/19 10:07 BP 138/71 04/06/19 10:07 Pulse Ox 93 L 04/06/19 10:07 Primary Care Provider: Gilbert Fish - Medical History PMH: Back Problems (chronic back pain), COPD, Emphysema, Hypercholesterolemia, Hyperlipidemia, Hypothyroidism - Surgical History Surgical History: Denies: CABG - Family History Family History: States: Unknown Family Hx - Immunization History Hx Tetanus Toxoid Vaccination: No Hx Influenza Vaccination: No Hx Pneumococcal Vaccination: No - Home Medications Home Medications: Ambulatory Orders Medication Instructions Recorded Enalapril Maleate [Vasotec] 5 mg PO DAILY 06/06/17 Lovastatin 10 mg PO DAILY 06/06/17 Mv,Min10/Folic Acid/D3/Ala/Lut 1 tab PO DAILY 06/06/17 [Strovite One Caplet] Acetaminophen with Codeine 1 tab PO Q6 PRN 04/06/19 [Tylenol with Codeine #3 Tablet] Albuterol Sulfate [Ventolin Hfa] 2 puff IH Q4 PRN 04/06/19 Cyclobenzaprine [Cyclobenzaprine 10 mg PO Q12 PRN 04/06/19 HCl] Lansoprazole [Prevacid] 15 mg PO DAILY 04/06/19 Levothyroxine [Synthroid] 50 mcg PO DAILY 04/06/19 Naproxen [Naprosyn] 500 mg PO Q12 PRN 04/06/19 - Allergies Allergies/Adverse Reactions: Allergies Allergy/AdvReac Type Severity Reaction Status Date / Time aspirin Allergy VOMITING Verified 04/06/19 10:12 Review of Systems ROS Statement: Except As Marked, All Systems Reviewed And Found Negative Gastrointestinal: Positive for: Nausea, Abdominal Pain Physical Exam - Reviewed Nursing Documentation Reviewed: Yes Vital Signs Reviewed: Yes - Physical Exam Appears: Positive for: Uncomfortable Head Exam: Positive for: ATRAUMATIC, NORMAL INSPECTION, NORMOCEPHALIC Skin: Positive for: Normal Color, Warm, DRY Eye Exam: Positive for: EOMI, Normal appearance, PERRL ENT: Positive for: Normal ENT Inspection Neck: Positive for: Normal, Painless ROM Cardiovascular/Chest: Positive for: Regular Rate, Rhythm Respiratory: Positive for: CNT, Normal Breath Sounds Gastrointestinal/Abdominal: Positive for: Tenderness (diffuse) Back: Positive for: Normal Inspection. Negative for: L CVA Tenderness, R CVA Tenderness Extremity: Positive for: Normal ROM. Negative for: Tenderness, Pedal Edema Neurological/Psych: Positive for: Awake, Alert, Normal Tone - Laboratory Results Result Diagrams: 04/06/19 11:40 04/06/19 11:40 Interpretation Of Abn Labs: 14.1 wbc - ECG ECG: Positive for: Interpreted By Me, Viewed By Me ECG Rhythm: Positive for: Normal QRS, Normal ST Segment, Sinus Rhythm O2 Sat by Pulse Oximetry: 93 Pulse Ox Interpretation: Normal - Radiology X-Ray: Interpreted by Me, Viewed By Me X-Ray Interpretation: Other (bowel obstruction) - Progress ED Course And Treament: 1200: Dr. Ackerman aware. and Wants ct and surgery resident to see pt. 1300: Surgery resident at bedside. Pt. is sepsis, but lactate wnl. 1405: Dr. Talbert aware and will admt. NG tube pu tin but surgery. - Critical Care Total Time (In Min): 30 Documented Critical Care: Time excludes all time spent performint seperately billable procedures Disposition - Clinical Impression Clinical Impression: Sepsis, Bowel obstruction, Abdominal pain - Patient ED Disposition Is Patient to be Admitted: Yes Counseled Patient/Family Regarding: Studies Performed, Diagnosis - Disposition Disposition Time: 13:00 Condition: FAIR - Pt Status Changed To: Hospital Disposition Of: Inpatient - Admit Certification Admit to Inpatient:: After my assessment, the patient will require hospital ization for at least two midnights. This is because of the severity of symptoms shown, intensity of services needed, and/or the medical risk in this patient being treated as an outpatient. - POA Present On Arrival: None
[2019-04-06] MEDS ORDERED: Iohexol 240 (50 ml) ONE (11:36)
[2019-04-06 11:50] LABS: VENOUS BLOOD GAS BASE EXCESS 3.5 mmol/L (0.0-2.0); VENOUS BLOOD GAS PCO2 40 mmHg (40-60); VENOUS BLOOD GAS PO2 43 mm/Hg (30-55); VENOUS BLOOD PH 7.45 (7.32-7.43)
[2019-04-06 11:58] LABS: ALBUMIN 3.5 g/dL (3.5-5.0); ALT/SGPT 46 U/L (9-52); AST/SGOT 36 U/L (14-36); BLOOD UREA NITROGEN 30 mg/dl (7-17); CALCIUM 8.3 mg/dL (8.4-10.2); GFR NON-AFRICAN AMERICAN > 60
[2019-04-06 11:59] LABS: INR 1.2; PROTHROMBIN TIME 13.9 Seconds (9.8-13.1)
[2019-04-06 12:02] LABS: PARTIAL THROMBOPLASTIN TIME 32.3 Seconds (25.6-37.1)
--- NOTE | 2019-04-06 12:16 | CP.PCM.CON ---
<Wolf Maldonado - Last Filed: 04/06/19 16:13> History of Present Illness - History of Present Illness History of Present Illness: General Surgery Consult Note for Dr. Latham Reason for consult: abd pain, nausea/vomiting 63 F with PMH that includes chronic back pain with opiod use presents to [facility] for complaint of abd pain and nausea/vomiting. Patient was seen and evaluated in the ED. Patient states pain began on Tuesday after she ate stew. She has been having multiple episodes of nausea/vomiting with NBNB emesis since onset of pain. Patient reports that she has chronic back pain and takes codeine. She has been taking the codeine everyday. She states pain is moderate to severe located in lower abdomen bilaterally. She reports it is constant and aching. She reports not passing flatus or having BM for 3 days until reaching ED where she passed flatus only. Denies fever/chills, cp, SOB, palpitations, diarrhea, urinary symptoms, incontinence. PMD: Dr. Fish PMH: chronic back pain with opiod use, COPD, Emphysema, Hypercholesterolemia, Hyperlipidemia, Hypothyroidism PSH: shoulder surgery, forearm ORIF, tubal ligation ALL: ASA Review of Systems - Review of Systems All systems: reviewed and no additional remarkable complaints except (as per HPI) Past Patient History - Infectious Disease Hx of Infectious Diseases: None - Past Medical History & Family History Past Medical History?: Yes - Past Social History Smoking Status: Light Smoker < 10 Cigarettes Daily - CARDIAC Hx Hypercholesterolemia: Yes - PULMONARY Hx Chronic Obstructive Pulmonary Disease (COPD): Yes Hx Emphysema: Yes - ENDOCRINE/METABOLIC Hx Hypothyroidism: Yes - MUSCULOSKELETAL/RHEUMATOLOGICAL Hx Falls: No Other/Comment: r shoulder fx, r forearm orif 2002 - PSYCHIATRIC Hx Substance Use: No - SURGICAL HISTORY Hx Coronary Artery Bypass Graft: No - ANESTHESIA Hx Anesthesia: Yes Hx Anesthesia Reactions: No Meds Allergies/Adverse Reactions: Allergies Allergy/AdvReac Type Severity Reaction Status Date / Time aspirin Allergy VOMITING Verified 04/06/19 10:12 Physical Exam - Constitutional Appears: No Acute Distress - Head Exam Head Exam: ATRAUMATIC, NORMOCEPHALIC - Eye Exam Eye Exam: EOMI, Normal appearance Pupil Exam: PERRL - ENT Exam ENT Exam: Mucous Membranes Dry Additional comments: NGT in place - Respiratory Exam Respiratory Exam: NORMAL BREATHING PATTERN - Cardiovascular Exam Cardiovascular Exam: REGULAR RHYTHM - GI/Abdominal Exam GI & Abdominal Exam: Distended, Normal Bowel Sounds, Soft, Tenderness (lower abdomen bilaterally). absent: Firm, Guarding, Hernia, Rebound, Rigid - Rectal Exam Additional comments: normal tone, no masses or blood noted, small amount of hard stool felt, no hemorrhoids present - Extremities Exam Extremities exam: Positive for: normal capillary refill - Back Exam Back exam: absent: CVA tenderness (L), CVA tenderness (R) - Neurological Exam Neurological exam: Alert, CN II-XII Intact, Oriented x3 - Psychiatric Exam Psychiatric exam: Normal Affect, Normal Mood - Skin Skin Exam: Dry, Intact, Warm Results - Vital Signs Recent Vital Signs: Last Vital Signs Temp 98.6 F 04/06/19 10:07 Pulse 93 H 04/06/19 11:56 Resp 18 04/06/19 11:56 BP 142/76 04/06/19 11:56 Pulse Ox 96 04/06/19 11:56 - Labs Result Diagrams: 04/06/19 11:40 04/06/19 11:40 Labs: Laboratory Results - last 24 hr 04/06/19 04/06/19 04/06/19 11:40 11:40 11:47 PT 13.9 H INR 1.2 APTT 32.3 pO2 43 VBG pH 7.45 H VBG pCO2 40 VBG HCO3 27.2 VBG Total CO2 29.0 H VBG O2 Sat (Calc) 83.1 H VBG Base Excess 3.5 H VBG Potassium 3.7 Glucose 98 Lactate 1.1 FiO2 21.0 Sodium 131 L 130.0 L Potassium 3.6 Chloride 94 L 96.0 L Carbon Dioxide 29 Anion Gap 12 BUN 30 H Creatinine 0.7 Est GFR ( Amer) > 60 Est GFR (Non-Af Amer) > 60 Random Glucose 104 Calcium 8.3 L Phosphorus 2.8 Magnesium 2.1 Total Bilirubin 0.7 AST 36 ALT 46 Alkaline Phosphatase 123 Troponin I < 0.0120 Total Protein 6.8 Albumin 3.5 Globulin 3.3 Albumin/Globulin Ratio 1.0 Venous Blood Potassium 3.7 Assessment & Plan - Assessment and Plan (Free Text) Assessment: 63 F who presents with abdominal pain and nausea/vomiting, suspected SBO Plan: -NPO -NGT low continuous suction -IVF -IV abx -Analgesics/Anti-emetics PRN -Strict I's & O's -Monitor for bowel function -Serial abd exams -f/u CT abd/pelvis with PO & IV contrast -Case discussed and patient evaluated with Dr. Yeison Maldonado PGY2 - Date & Time Date: 04/06/19 Time: 13:15 <Prudencio Latham - Last Filed: 04/07/19 17:51> Meds - Medications Medications: Current Medications Acetaminophen (Tylenol 650mg/20.3ml Solution Ud) 650 mg NG Q6 PRN PRN Reason: Fever >100.4 F Albuterol (Ventolin Hfa 90 Mcg/Actuation (8 G)) 2 puff IH Q4 PRN PRN Reason: Shortness of Breath Atorvastatin Calcium (Lipitor) 10 mg PO DAILY [facility] Last Admin: 04/07/19 08:58 Dose: 10 mg Enalapril Maleate (Vasotec) 5 mg PO DAILY [facility] Last Admin: 04/07/19 10:28 Dose: 5 mg Enoxaparin Sodium (Lovenox) 40 mg SC DAILY [facility]; Protocol Last Admin: 04/07/19 08:58 Dose: 40 mg Piperacillin Sod/Tazobactam (Sod 4.5 gm/ Sodium Chloride) 100 mls @ 100 mls/hr IVPB Q8@0500,1300,2100 [facility]; Protocol Last Admin: 04/07/19 12:35 Dose: 100 mls/hr Iron Sucrose 100 mg/ Sodium (Chloride) 105 mls @ 105 mls/hr IVPB DAILY [facility] Stop: 04/09/19 23:59 Potassium Chloride/Dextrose/Sod Cl (Potassium Chl 20 Meq In D5-Ns) 1,000 mls @ 150 mls/hr IV .Q6H40M [facility] Last Admin: 04/07/19 11:19 Dose: Not Given Ketorolac Tromethamine (Toradol) 30 mg IVP Q6 PRN PRN Reason: Pain, severe (8-10) Last Admin: 04/07/19 13:31 Dose: 30 mg Ketorolac Tromethamine (Toradol) 15 mg IM Q6 PRN PRN Reason: Pain, moderate (4-7) Levothyroxine Sodium (Synthroid) 50 mcg PO DAILY [facility] Last Admin: 04/07/19 08:58 Dose: 50 mcg Ondansetron HCl (Zofran Inj) 4 mg IVP Q6 PRN PRN Reason: Nausea/Vomiting Pantoprazole Sodium (Protonix Inj) 40 mg IVP DAILY [facility] Last Admin: 04/07/19 08:58 Dose: 40 mg Results - Vital Signs Recent Vital Signs: Last Vital Signs Temp 97.7 F 04/07/19 16:05 Pulse 75 04/07/19 16:05 Resp 19 04/07/19 16:05 BP 154/74 H 04/07/19 16:05 Pulse Ox 95 04/07/19 16:05 - Labs Result Diagrams: 04/07/19 05:20 04/07/19 11:30 Labs: Laboratory Results - last 24 hr 04/06/19 04/06/19 04/06/19 20:30 20:30 22:07 WBC RBC Hgb Hct MCV MCH MCHC RDW Plt Count MPV Neut % (Auto) Lymph % (Auto) [place] % (Auto) Eos % (Auto) Baso % (Auto) Neut # (Auto) Lymph # (Auto) [place] # (Auto) Eos # (Auto) Baso # (Auto) Retic Count Sodium Potassium Chloride Carbon Dioxide Anion Gap BUN Creatinine Est GFR ( Amer) Est GFR (Non-Af Amer) POC Glucose (mg/dL) 78 Random Glucose Calcium Magnesium Iron 23 L TIBC 192 L % Saturation 12 L Transferrin Ferritin Total Bilirubin AST ALT Alkaline Phosphatase Troponin I < 0.0120 Total Protein Albumin Globulin Albumin/Globulin Ratio Vitamin B12 Folate TSH 3rd Generation 04/06/19 04/07/19 04/07/19 23:34 02:30 05:20 WBC 14.0 H RBC 3.27 L Hgb 9.9 L Hct 29.0 L MCV 88.5 MCH 30.1 MCHC 34.0 RDW 13.8 Plt Count 306 MPV 8.0 Neut % (Auto) 85.0 H Lymph % (Auto) 5.7 L [place] % (Auto) 7.3 Eos % (Auto) 1.7 Baso % (Auto) 0.3 Neut # (Auto) 11.9 H Lymph # (Auto) 0.8 L [place] # (Auto) 1.0 H Eos # (Auto) 0.2 Baso # (Auto) 0.0 Retic Count Sodium Potassium Chloride Carbon Dioxide Anion Gap BUN Creatinine Est GFR ( Amer) Est GFR (Non-Af Amer) POC Glucose (mg/dL) 139 H Random Glucose Calcium Magnesium Iron TIBC % Saturation Transferrin Ferritin Total Bilirubin AST ALT Alkaline Phosphatase Troponin I < 0.0120 Total Protein Albumin Globulin Albumin/Globulin Ratio Vitamin B12 Folate TSH 3rd Generation 04/07/19 04/07/19 04/07/19 05:20 05:20 05:20 WBC RBC Hgb Hct MCV MCH MCHC RDW Plt Count MPV Neut % (Auto) Lymph % (Auto) [place] % (Auto) Eos % (Auto) Baso % (Auto) Neut # (Auto) Lymph # (Auto) [place] # (Auto) Eos # (Auto) Baso # (Auto) Retic Count 1.6 H Sodium 130 L Potassium 2.9 L Chloride 96 L Carbon Dioxide 22 Anion Gap 15 BUN 15 Creatinine 0.6 L Est GFR ( Amer) > 60 Est GFR (Non-Af Amer) > 60 POC Glucose (mg/dL) Random Glucose 113 H Calcium 7.7 L Magnesium Iron TIBC % Saturation Transferrin 113.69 L Ferritin 390.0 H Total Bilirubin 0.8 AST 23 ALT 34 Alkaline Phosphatase 114 Troponin I Total Protein 6.4 Albumin 3.1 L Globulin 3.3 Albumin/Globulin Ratio 0.9 L Vitamin B12 > 1000 H Folate 15.9 TSH 3rd Generation 3.71 04/07/19 04/07/19 04/07/19 05:25 08:41 11:30 WBC RBC Hgb Hct MCV MCH MCHC RDW Plt Count MPV Neut % (Auto) Lymph % (Auto) [place] % (Auto) Eos % (Auto) Baso % (Auto) Neut # (Auto) Lymph # (Auto) [place] # (Auto) Eos # (Auto) Baso # (Auto) Retic Count Sodium 129 L Potassium 3.3 L Chloride 99 Carbon Dioxide 19 L Anion Gap 14 BUN 12 Creatinine 0.5 L Est GFR ( Amer) > 60 Est GFR (Non-Af Amer) > 60 POC Glucose (mg/dL) 106 Random Glucose 111 H Calcium 7.6 L Magnesium 1.8 Iron TIBC % Saturation Transferrin Ferritin Total Bilirubin AST ALT Alkaline Phosphatase Troponin I Total Protein Albumin Globulin Albumin/Globulin Ratio Vitamin B12 Folate TSH 3rd Generation 04/07/19 04/07/19 11:46 16:06 WBC RBC Hgb Hct MCV MCH MCHC RDW Plt Count MPV Neut % (Auto) Lymph % (Auto) [place] % (Auto) Eos % (Auto) Baso % (Auto) Neut # (Auto) Lymph # (Auto) [place] # (Auto) Eos # (Auto) Baso # (Auto) Retic Count Sodium Potassium Chloride Carbon Dioxide Anion Gap BUN Creatinine Est GFR ( Amer) Est GFR (Non-Af Amer) POC Glucose (mg/dL) 125 H 120 H Random Glucose Calcium Magnesium Iron TIBC % Saturation Transferrin Ferritin Total Bilirubin AST ALT Alkaline Phosphatase Troponin I Total Protein Albumin Globulin Albumin/Globulin Ratio Vitamin B12 Folate TSH 3rd Generation Assessment & Plan - Assessment and Plan (Free Text) Plan: 63yo F presents with lower abdominal pain for 3 days. Pain is constant in nature, mostly localized to lower abdomen. pt reports multiple episodes of nausea, vomiting. Pt is passing flatus. Denies any fever, chills, sob, cp, dysuria. +chronic back pain PSHx: tubal ligation gen: awake, alert, NAD heent: nc/at, eomi, perrla, -OCTAVIO, trachea midline, neck supple no acute respiratory distress abd: soft, distended, tenderness to lower abdomen on deep palpation, no peritoneal signs, no hernias amadou: no masses, no hemorrhoids, stool in vault 63yo F with abdominal pain possible enterocolitis vs partial sbo -CT reviewed -recommmend NGT to LWS -IV hydration -IV abx -repeat labs in am -GI evaluation -no acute surgical intervention will continue to follow
[2019-04-06 12:24] LABS: LIPASE < 10 U/L (23-300)
[2019-04-06 12:25] LABS: BASO # 0.1 K/uL (0.0-0.2); BASO % 0.6 % (0.0-2.0); EOS # 0.1 K/uL (0.0-0.7); EOS % 0.7 % (0.0-4.0); HEMOGLOBIN 10.3 g/dL (12.0-16.0); LYMPH # 0.7 K/uL (1.0-4.3); LYMPH % 5.1 % (20.0-40.0); MEAN CELL VOLUME 89.3 fl (81.0-99.0); MEAN CORPUSCULAR HEMOGLOBIN 30.1 pg (27.0-31.0); MEAN CORPUSCULAR HGB CONC 33.7 g/dL (33.0-37.0); MEAN PLATELET VOLUME 8.1 fl (7.2-11.7); MONO # 0.7 K/uL (0.0-0.8); NEUT # 12.5 K/uL (1.8-7.0); NEUT % 88.6 % (50.0-75.0); NRBC % 0.1 % (0.0-0.0); PLATELET COUNT 319 K/uL (130-400); RBC 3.42 Mil/uL (3.80-5.20); RED CELL DISTRIBUTION WIDTH 13.6 % (11.5-14.5); WHITE BLOOD COUNT 14.1 K/uL (4.8-10.8)
[2019-04-06] MEDS ORDERED: Piperacillin/Tazobact 3.375 GM in Sodium Chloride 0.9% 100 ML IV STA (13:11)
[2019-04-06 13:20] LABS: ANISOCYTOSIS SLIGHT; BANDS 20 % (0-2); EOSINOPHIL 2 % (0-7); LARGE PLATELETS PRESENT; LYMPHOCYTE 3 % (20-50); MONOCYTE 4 % (0-10); NEUTROPHIL 71 % (42-75); PLATELET ESTIMATE NORMAL (NORMAL); TOTAL CELLS COUNTED 100
[2019-04-06] MEDS ORDERED: Piperacillin/Tazobact 3.375 gm Inj IVPB ONE (13:22)
[2019-04-06] MEDS ORDERED: Acetaminophen 650mg/20.3ml solution UD NG PRN (14:30)
--- NOTE | 2019-04-06 14:37 | RAD ---
Date of service: 04/06/2019 PROCEDURE: Radiographs of the chest and abdomen (obstructive series) HISTORY: pain COMPARISON: No prior. TECHNIQUE: AP radiograph of the chest, with upright and supine radiographs of the abdomen. 3 views obtained. FINDINGS: CHEST: Lungs: Clear. Cardiovascular: Normal size heart. No pulmonary vascular congestion. No aortic atherosclerotic calcification present Pleura: No pleural fluid. No pneumothorax. Other findings: None. ABDOMEN AND PELVIS: Bowel: Multiple eyelid small bowel loops with air-fluid levels on upright view. Consistent with mechanical small bowel obstruction. No definite gas identified within the colon. Free air: None. Bones: Unremarkable. Other findings: None. IMPRESSION: Findings concerning for mechanical small-bowel obstruction.
--- NOTE | 2019-04-06 14:38 | RAD ---
Date of service: 04/06/2019 HISTORY: NGT placement COMPARISON: Comparison made with prior study 03/20/[address] scan of the chest dated 08/16/2017. TECHNIQUE: 1 view obtained. FINDINGS: In situ NGT, the tip of which lies in good position right parasagittal upper-mid abdomen. LUNGS: The interstitial markings are increased and coarsened; rule out sequela of reactive/inflammatory airway disease or viral illness. Redemonstrated is a tiny calcified granuloma left posterolateral lung base. PLEURA: No significant pleural effusion identified, no pneumothorax apparent. CARDIOVASCULAR: Previously noted minimal aortic atherosclerotic calcification seen on CT scan is not readily apparent on this chest radiograph. Normal cardiac size. No pulmonary vascular congestion. OSSEOUS STRUCTURES: No significant abnormalities. VISUALIZED UPPER ABDOMEN: Normal. OTHER FINDINGS: None. IMPRESSION: The interstitial markings are increased and coarsened; rule out sequela of reactive/inflammatory airway disease or viral illness. Redemonstrated is a tiny calcified granuloma left posterolateral lung base.
[2019-04-06] MEDS ORDERED: Iohexol 300 100 ML IJ ONE (14:43)
[2019-04-06] MEDS ORDERED: Sodium Chloride 0.9% 50 ML IV ONE (14:43)
--- NOTE | 2019-04-06 14:57 | CP.PCM.HP ---
History of Present Illness - History of Present Illness History of Present Illness: 63 yo female with history of COPD, hypercholesterolemia, hyperlipidemia, hypothyrodism presented to the ED with diffused abominal pain. Abdominal pain started Tuesday (2 days prior to admission) and was worsening. States she has been passing a small amount of gas. No episodes of vomitus. Unknown last BM. Denies chest pain, dypsnea, dysuria, frequency and urgency. ROS: negative except for stated above in HPI PMD: Dr. Fish Medical history: COPD, Hypercholesterolemia, hyperlipidemia Family history: unknown cancer in the family Social history: Smokes 1 pack a day for her "whole life"; was an alcoholic - last drink was 8 years ago when her dies. Denies illicit drug use. Surgical history: Bilateral tubal ligation 25 years ago; Right arm surgery and Right toe bunion removal. Person to contact if patient cannot make decisions for herself: Bee (friend) ED course: Afebrile, tachycardia, Saturating 98% room air. - EKG: NSR - Abdominal Xray: Small bowl obstruction - Chest Xray: Interstitial markings increased and coarsened. - Surgery consult- NGT placed - 2 L bolus of NS - Zosyn x1 dose - Morphine 2 mg IVP x1 - Zofran x1 - Pepcid Present on Admission - Present on Admission Any Indicators Present on Admission: No Past Patient History - Infectious Disease Hx of Infectious Diseases: None - Past Medical History & Family History Past Medical History?: Yes - Past Social History Smoking Status: Light Smoker < 10 Cigarettes Daily - CARDIAC Hx Hypercholesterolemia: Yes - PULMONARY Hx Chronic Obstructive Pulmonary Disease (COPD): Yes Hx Emphysema: Yes - ENDOCRINE/METABOLIC Hx Hypothyroidism: Yes - MUSCULOSKELETAL/RHEUMATOLOGICAL Hx Falls: No Other/Comment: r shoulder fx, r forearm orif 2003 - PSYCHIATRIC Hx Substance Use: No - SURGICAL HISTORY Hx Coronary Artery Bypass Graft: No - ANESTHESIA Hx Anesthesia: Yes Hx Anesthesia Reactions: No Meds Allergies/Adverse Reactions: Allergies Allergy/AdvReac Type Severity Reaction Status Date / Time aspirin Allergy VOMITING Verified 04/06/19 10:12 Physical Exam - Constitutional Appears: In Acute Distress, Older Than Stated Age, Chronically Ill - Eye Exam Eye Exam: Normal appearance - ENT Exam ENT Exam: Mucous Membranes Moist - Neck Exam Neck exam: Positive for: Normal Inspection - Respiratory Exam Respiratory Exam: Clear to Auscultation Bilateral, NORMAL BREATHING PATTERN. absent: Accessory Muscle Use, Chest Wall Tenderness, Decreased Breath Sounds, Prolonged Expiratory Phase, Rales, Rhonchi, Wheezes, Respiratory Distress, Stridor - Cardiovascular Exam Cardiovascular Exam: +S1, +S2 - GI/Abdominal Exam GI & Abdominal Exam: Hyperactive Bowel Sounds, Soft, Tenderness (Generalized abdominal tenderness. ). absent: Distended, Firm, Guarding, Rebound, Rigid - Extremities Exam Extremities exam: Positive for: normal inspection, pedal pulses present. Negative for: calf tenderness, pedal edema, tenderness - Neurological Exam Additional comments: Sleepy after Morphine was given. - Skin Skin Exam: Dry, Intact, Normal Color, Warm Results - Vital Signs Recent Vital Signs: Last Vital Signs Temp 98.6 F 04/06/19 10:07 Pulse 96 H 04/06/19 12:47 Resp 24 04/06/19 12:47 BP 154/79 H 04/06/19 12:47 Pulse Ox 93 L 04/06/19 14:14 - Labs Result Diagrams: 04/06/19 11:40 04/06/19 11:40 Labs: Laboratory Results - last 24 hr 04/06/19 04/06/19 04/06/19 11:40 11:40 11:40 WBC 14.1 H RBC 3.42 L Hgb 10.3 L D Hct 30.6 L MCV 89.3 D MCH 30.1 MCHC 33.7 RDW 13.6 Plt Count 319 MPV 8.1 Neut % (Auto) 88.6 H Lymph % (Auto) 5.[address] [place] % (Auto) 5.0 Eos % (Auto) 0.7 Baso % (Auto) 0.6 Neut # (Auto) 12.5 H Lymph # (Auto) 0.[address] [place] # (Auto) 0.7 Eos # (Auto) 0.1 Baso # (Auto) 0.1 Neutrophils % (Manual) 71 Band Neutrophils % 20 H* Lymphocytes % (Manual) 3 L Monocytes % (Manual) 4 Eosinophils % (Manual) 2 Platelet Estimate Normal Large Platelets Present Anisocytosis (manual) Slight PT 13.9 H INR 1.2 APTT 32.3 pO2 VBG pH VBG pCO2 VBG HCO3 VBG Total CO2 VBG O2 Sat (Calc) VBG Base Excess VBG Potassium Glucose Lactate FiO2 Sodium 131 L Potassium 3.6 Chloride 94 L Carbon Dioxide 29 Anion Gap 12 BUN 30 H Creatinine 0.7 Est GFR ( Amer) > 60 Est GFR (Non-Af Amer) > 60 Random Glucose 104 Calcium 8.3 L Phosphorus 2.8 Magnesium 2.1 Total Bilirubin 0.7 AST 36 ALT 46 Alkaline Phosphatase 123 Troponin I < 0.0120 Total Protein 6.8 Albumin 3.5 Globulin 3.3 Albumin/Globulin Ratio 1.0 Lipase < 10 L Venous Blood Potassium 04/06/19 11:47 WBC RBC Hgb Hct MCV MCH MCHC RDW Plt Count MPV Neut % (Auto) Lymph % (Auto) [place] % (Auto) Eos % (Auto) Baso % (Auto) Neut # (Auto) Lymph # (Auto) [place] # (Auto) Eos # (Auto) Baso # (Auto) Neutrophils % (Manual) Band Neutrophils % Lymphocytes % (Manual) Monocytes % (Manual) Eosinophils % (Manual) Platelet Estimate Large Platelets Anisocytosis (manual) PT INR APTT pO2 43 VBG pH 7.45 H VBG pCO2 40 VBG HCO3 27.2 VBG Total CO2 29.0 H VBG O2 Sat (Calc) 83.1 H VBG Base Excess 3.5 H VBG Potassium 3.7 Glucose 98 Lactate 1.1 FiO2 21.0 Sodium 130.0 L Potassium Chloride 96.0 L Carbon Dioxide Anion Gap BUN Creatinine Est GFR ( Amer) Est GFR (Non-Af Amer) Random Glucose Calcium Phosphorus Magnesium Total Bilirubin AST ALT Alkaline Phosphatase Troponin I Total Protein Albumin Globulin Albumin/Globulin Ratio Lipase Venous Blood Potassium 3.7 Assessment & Plan - Assessment and Plan (Free Text) Assessment: 63 yo female with history of COPD, hypercholesterolemia, hyperlipidemia, hypothyrodism presented to the ED with diffused abominal pain admitted for Small bowel obstruction. Plan: SBO - Admit Med/ Surg - Septic on admission - Leukocytosis of 14.1 with bands of 20 - afebrile - tachycardia - Lactate normal at 1.1 - NPO - IVF - NGT placed- low continous suction - F/U CT scan of abdomen and pelvis with contrast - Surgical consult- Dr. Yeison Riggs for nausea - Pain medications Hyponatremia - Na: 131 - IVF resuscitation with NS - repeat BMP tomorrow Hypothyroidism - C/W home medication: Levothyroxine 50mcg daily - TSH from 2018 : 0.40 - Follow up repeat TSH COPD - C/W home medication Ventolin at this time Hyperlipidemia - Home medication: Lovastatin 10mg - Not formulary, changed to atorvastatin low dose while in hospital GI prophylaxis - Protonix 40mg IVP daily DVT prophylaxis - SCD's, Lovenox daily Full code
[2019-04-06 16:00] LABS: SQUAMOUS EPITHIAL 4 /hpf (0-5); URINE BACTERIA OCC (<OCC); URINE BILIRUBIN NEGATIVE (NEGATIVE); URINE BLOOD NEGATIVE (NEGATIVE); URINE CLARITY SLIGHTY-CLOUDY (Clear); URINE COLOR YELLOW (YELLOW); URINE GLUCOSE (UA) NEG (NEGATIVE); URINE LEUKOCYTE ESTERASE NEG Leu/uL (Negative); URINE PROTEIN 100 mg/dL (NEGATIVE)
[2019-04-06] MEDS ORDERED: Albuterol HFA 90 mcg/actuation (8 g) IH PRN (16:02)
[2019-04-06] MEDS: Sodium Chloride 0.9% 1,000 ML IV SCH ×3 (16:25→18:06)
--- NOTE | 2019-04-06 16:47 | CT ---
Date of service: 04/06/2019 PROCEDURE: CT Abdomen and Pelvis with contrast HISTORY: abd pain COMPARISON: 08/11/2015 TECHNIQUE: Contrast dose: 90 mL Omnipaque 300 Radiation dose: Total exam DLP = 297.98 mGy-cm. This CT exam was performed using one or more of the following dose reduction techniques: Automated exposure control, adjustment of the mA and/or kV according to patient size, and/or use of iterative reconstruction technique. FINDINGS: LOWER THORAX: Right lower lobe linear scar/atelectasis. No infiltrate. LIVER: Unremarkable. No gross lesion or ductal dilatation. GALLBLADDER AND BILE DUCTS: Unremarkable. PANCREAS: Moderate pancreatic atrophy. No mass or peripancreatic fluid collection. SPLEEN: Unremarkable. ADRENALS: Unremarkable. No mass. KIDNEYS AND URETERS: Several very small bilateral rounded low-density renal cortical masses, likely cysts. Largest 8 mm. Too small to characterize. VASCULATURE: Unremarkable. No aortic aneurysm. There is atherosclerotic plaque of the abdominal aorta. BOWEL: Dilatation of multiple loops of small bowel. Jejunum dilated up to 4.1 cm diameter. No definite transition point identified. In distal and terminal ileum, there is no sudden caliber change but rather there is progressive caliber change. There is circumferential mural thickening of the entire ileum. There is goode colonic circumferential mural thickening. Findings consistent with extensive enterocolitis. Possibly infectious. Rule out inflammatory bowel disease. Questionable mechanical bowel obstruction versus ileus. There is gastric mucosal thickening seen in the gastric antrum. A nasogastric tube is present. There is a small hiatal hernia. There are minimally enlarged lymph nodes adjacent to the distal thoracic esophagus. APPENDIX: Not identified. No secondary findings. PERITONEUM: Minimal ascites. No pneumoperitoneum LYMPH NODES: Numerous shotty retroperitoneal nodes without significant enlargement of retroperitoneal nodes. No pelvic lymphadenopathy. Shotty subcentimeter nodes in the small bowel mesentery. Shotty nodes adjacent to the distal esophagus. BLADDER: Unremarkable. REPRODUCTIVE: Unremarkable postmenopausal uterus BONES: No acute fracture. OTHER FINDINGS: None. IMPRESSION: Possible mechanical small-bowel obstruction. Note clear transition point identified. Goode colitis with extensive enteritis involving predominantly the ileum. Mural thickening of the gastric antrum. Minimal ascites. Shotty retroperitoneal and mesenteric lymph nodes as well as nodes adjacent to the distal esophagus. Likely reactive. Possible infectious enterocolitis versus inflammatory.
[2019-04-06] MEDS ORDERED: Piperacillin/Tazobact 4.5 GM in Sodium Chloride 0.9% 100 ML IVPB SCH (17:00)
--- NOTE | 2019-04-06 20:02 | CARD ---
APPROVED REPORT Date of service: 04/06/2019 EKG Measurement Heart [id number] <Conclusion> Normal sinus rhythm Normal ECG
[2019-04-06] MEDS: Piperacillin/Tazobact 4.5 GM in Sodium Chloride 0.9% 100 ML IVPB SCH (20:29)
[2019-04-06 21:11] LABS: IRON 23 ug/dL (37-170)
[2019-04-06 21:21] LABS: % IRON SATURATION 12 % (20-55); TOTAL IRON BINDING CAPACITY 192 ug/dL (250-450)
[2019-04-06] MEDS ORDERED: Dextrose 50% SYRINGE Inj (50 ml) IVP ONE (22:16)
[2019-04-07] MEDS ORDERED: Potassium Chl 20 mEq in D5-NS 1,000 ML IV SCH (02:00)
[2019-04-07] MEDS: Piperacillin/Tazobact 4.5 GM in Sodium Chloride 0.9% 100 ML IVPB SCH ×3 (05:25→21:04)
[2019-04-07 07:11] LABS: BASO % 0.3 % (0.0-2.0); EOS # 0.2 K/uL (0.0-0.7); EOS % 1.7 % (0.0-4.0); HEMOGLOBIN 9.9 g/dL (12.0-16.0); LYMPH # 0.8 K/uL (1.0-4.3); LYMPH % 5.7 % (20.0-40.0); MEAN CELL VOLUME 88.5 fl (81.0-99.0); MEAN CORPUSCULAR HEMOGLOBIN 30.1 pg (27.0-31.0); MONO % 7.3 % (0.0-10.0); NEUT # 11.9 K/uL (1.8-7.0); NRBC % 0.1 % (0.0-0.0); RBC 3.27 Mil/uL (3.80-5.20); RED CELL DISTRIBUTION WIDTH 13.8 % (11.5-14.5)
[2019-04-07 07:33] LABS: ALB/GLOB RATIO 0.9 (1.0-2.1); ALBUMIN 3.1 g/dL (3.5-5.0); ALT/SGPT 34 U/L (9-52); AST/SGOT 23 U/L (14-36); BLOOD UREA NITROGEN 15 mg/dl (7-17); CALCIUM 7.7 mg/dL (8.4-10.2); GFR NON-AFRICAN AMERICAN > 60
--- NOTE | 2019-04-07 07:50 | CP.PCM.PN ---
<Joseline StanfordDelfina - Last Filed: 04/07/19 07:47> Subjective - Date & Time of Evaluation Date of Evaluation: 04/07/19 Time of Evaluation: 07:47 - Subjective Subjective: Surgery: Dr. Latham Patient complains of some pain in the abdomen. Wants to know when the NGT will come out. She denies flatus or BM. She has not been OOB ambulating. She denies n/v/f/c. Reports abdominal distention unchanged from yesterday. Objective - Vital Signs/Intake and Output Vital Signs (last 24 hours): Temp Pulse Resp BP Pulse Ox 97.6 F 91 H 19 149/65 94 L 04/06/19 23:40 04/06/19 23:40 04/06/19 23:40 04/06/19 23:40 04/06/19 23:40 Intake and Output: 04/07/19 04/07/19 06:59 18:59 Intake Total 150 1800 Output Total 20 110 Balance 130 1690 - Medications Medications: Current Medications Acetaminophen (Tylenol 650mg/20.3ml Solution Ud) 650 mg NG Q6 PRN PRN Reason: Fever >100.4 F Albuterol (Ventolin Hfa 90 Mcg/Actuation (8 G)) 2 puff IH Q4 PRN PRN Reason: Shortness of Breath Atorvastatin Calcium (Lipitor) 10 mg PO DAILY [facility] Enalapril Maleate (Vasotec) 5 mg PO DAILY [facility] Enoxaparin Sodium (Lovenox) 40 mg SC DAILY [facility]; Protocol Sodium Chloride (Sodium Chloride 0.9%) 1,000 mls @ 150 mls/hr IV .Q6H40M [facility] Last Admin: 04/06/19 18:06 Dose: 150 mls/hr Piperacillin Sod/Tazobactam (Sod 4.5 gm/ Sodium Chloride) 100 mls @ 100 mls/hr IVPB Q8@0500,1300,2100 [facility]; Protocol Last Admin: 04/07/19 05:25 Dose: 100 mls/hr Potassium Chloride/Dextrose/Sod Cl (Potassium Chl 20 Meq In D5-Ns) 1,000 mls @ 150 mls/hr IV .Q6H40M [facility] Stop: 04/07/19 08:39 Last Admin: 04/07/19 02:21 Dose: 150 mls/hr Ketorolac Tromethamine (Toradol) 30 mg IVP Q6 PRN PRN Reason: Pain, severe (8-10) Last Admin: 04/07/19 02:08 Dose: 30 mg Ketorolac Tromethamine (Toradol) 15 mg IM Q6 PRN PRN Reason: Pain, moderate (4-7) Levothyroxine Sodium (Synthroid) 50 mcg PO DAILY [facility] Ondansetron HCl (Zofran Inj) 4 mg IVP Q6 PRN PRN Reason: Nausea/Vomiting Pantoprazole Sodium (Protonix Inj) 40 mg IVP DAILY [facility] - Labs Labs: 04/07/19 05:20 04/07/19 05:20 PT 13.9 Seconds (9.8-13.1) H 04/06/19 11:40 INR 1.2 04/06/19 11:40 APTT 32.3 Seconds (25.6-37.1) 04/06/19 11:40 - Constitutional Appears: Non-toxic, No Acute Distress - Head Exam Head Exam: ATRAUMATIC, NORMOCEPHALIC - Eye Exam Eye Exam: EOMI - ENT Exam ENT Exam: Mucous Membranes Dry - Respiratory Exam Respiratory Exam: NORMAL BREATHING PATTERN. absent: Respiratory Distress - Cardiovascular Exam Cardiovascular Exam: REGULAR RHYTHM. absent: Tachycardia - GI/Abdominal Exam GI & Abdominal Exam: Distended, Soft, Tenderness. absent: Guarding, Rebound Additional comments: epigastric with deep palpation diffuse discomfort with exam - Extremities Exam Extremities Exam: Normal Inspection. absent: Calf Tenderness - Neurological Exam Neurological Exam: Alert, Awake, Oriented x3 - Psychiatric Exam Psychiatric exam: Normal Affect, Normal Mood - Skin Skin Exam: Dry, Warm Assessment and Plan - Assessment and Plan (Free Text) Assessment: 63 y/o female w/ abdominal pain 2/2 ileus possible obstruction and diffuse enterocolitis Plan: -cont NPO, ok to clamp NGT for BP medications -OOB ambulating frequently- can clamp NGT for ambulating -ice chips for dry mouth -abdominal XRAY to monitor progression of contrast -monitor for bowel function -cont IVFs and IV abxs -replete electrolytes as needed -NGT on LCWS until bowel function returns -f/u GI consult, possible IBD? -d/w Dr. Latham, further recs per attending AKWhite PGY4 <Prudencio Latham - Last Filed: 04/07/19 17:59> Objective - Vital Signs/Intake and Output Vital Signs (last 24 hours): Temp Pulse Resp BP Pulse Ox 97.7 F 75 19 154/74 H 95 04/07/19 16:05 04/07/19 16:05 04/07/19 16:05 04/07/19 16:05 04/07/19 16:05 Intake and Output: 04/07/19 04/07/19 06:59 18:59 Intake Total 150 1800 Output Total 20 110 Balance 130 1690 - Medications Medications: Current Medications Acetaminophen (Tylenol 650mg/20.3ml Solution Ud) 650 mg NG Q6 PRN PRN Reason: Fever >100.4 F Albuterol (Ventolin Hfa 90 Mcg/Actuation (8 G)) 2 puff IH Q4 PRN PRN Reason: Shortness of Breath Atorvastatin Calcium (Lipitor) 10 mg PO DAILY [facility] Last Admin: 04/07/19 08:58 Dose: 10 mg Enalapril Maleate (Vasotec) 5 mg PO DAILY [facility] Last Admin: 04/07/19 10:28 Dose: 5 mg Enoxaparin Sodium (Lovenox) 40 mg SC DAILY [facility]; Protocol Last Admin: 04/07/19 08:58 Dose: 40 mg Piperacillin Sod/Tazobactam (Sod 4.5 gm/ Sodium Chloride) 100 mls @ 100 mls/hr IVPB Q8@0500,1300,2100 [facility]; Protocol Last Admin: 04/07/19 12:35 Dose: 100 mls/hr Iron Sucrose 100 mg/ Sodium (Chloride) 105 mls @ 105 mls/hr IVPB DAILY [facility] Stop: 04/09/19 23:59 Potassium Chloride/Dextrose/Sod Cl (Potassium Chl 20 Meq In D5-Ns) 1,000 mls @ 150 mls/hr IV .Q6H40M [facility] Last Admin: 04/07/19 11:19 Dose: Not Given Ketorolac Tromethamine (Toradol) 30 mg IVP Q6 PRN PRN Reason: Pain, severe (8-10) Last Admin: 04/07/19 13:31 Dose: 30 mg Ketorolac Tromethamine (Toradol) 15 mg IM Q6 PRN PRN Reason: Pain, moderate (4-7) Levothyroxine Sodium (Synthroid) 50 mcg PO DAILY [facility] Last Admin: 04/07/19 08:58 Dose: 50 mcg Ondansetron HCl (Zofran Inj) 4 mg IVP Q6 PRN PRN Reason: Nausea/Vomiting Pantoprazole Sodium (Protonix Inj) 40 mg IVP DAILY [facility] Last Admin: 04/07/19 08:58 Dose: 40 mg - Labs Labs: 04/07/19 05:20 04/07/19 11:30 PT 13.9 Seconds (9.8-13.1) H 04/06/19 11:40 INR 1.2 04/06/19 11:40 APTT 32.3 Seconds (25.6-37.1) 04/06/19 11:40 Assessment and Plan - Assessment and Plan (Free Text) Plan: seen at bedside, pt feels better, denies any nausea or vomiting. Pt is passing flatus. States abdominal pain improving. gen: awake, alert, NAD heent: nc/at, eomi, perrla no acute respiratory distress abd: soft, distended, minimal discomfort to lower abdomen, no peritoneal signs -cont iv abx ivf ok to dc NGT can start clears
[2019-04-07] MEDS ORDERED: Dextrose 5%/0.9% NS 1,000 ML IV SCH (08:00)
--- NOTE | 2019-04-07 08:47 | CP.PCM.PN ---
Subjective - Date & Time of Evaluation Date of Evaluation: 04/07/19 Time of Evaluation: 08:45 - Subjective Subjective: Patient seen and examined at bedside. Reports mild abdominal pain and nausea. NGT in place. NPO. Denies passing flatus per rectum. Denies BM. Hemodynamically stable. Afebrile and no events overnight. Objective - Vital Signs/Intake and Output Vital Signs (last 24 hours): Temp Pulse Resp BP Pulse Ox 97.6 F 91 H 19 149/65 94 L 04/06/19 23:40 04/06/19 23:40 04/06/19 23:40 04/06/19 23:40 04/06/19 23:40 Intake and Output: 04/07/19 04/07/19 06:59 18:59 Intake Total 150 1800 Output Total 20 110 Balance 130 1690 - Medications Medications: Current Medications Acetaminophen (Tylenol 650mg/20.3ml Solution Ud) 650 mg NG Q6 PRN PRN Reason: Fever >100.4 F Albuterol (Ventolin Hfa 90 Mcg/Actuation (8 G)) 2 puff IH Q4 PRN PRN Reason: Shortness of Breath Atorvastatin Calcium (Lipitor) 10 mg PO DAILY [facility] Enalapril Maleate (Vasotec) 5 mg PO DAILY [facility] Enoxaparin Sodium (Lovenox) 40 mg SC DAILY [facility]; Protocol Piperacillin Sod/Tazobactam (Sod 4.5 gm/ Sodium Chloride) 100 mls @ 100 mls/hr IVPB Q8@0500,1300,2100 [facility]; Protocol Last Admin: 04/07/19 05:25 Dose: 100 mls/hr Potassium Chloride (Potassium Chloride 20 Meq/100 Ml) 100 mls @ 50 mls/hr IVPB Q2 [facility] Stop: 04/07/19 13:59 Iron Sucrose 100 mg/ Sodium (Chloride) 105 mls @ 105 mls/hr IVPB DAILY [facility] Stop: 04/09/19 23:59 Dextrose/Sodium Chloride (Dextrose 5%/0.9% Ns 1000 Ml) 1,000 mls @ 150 mls/hr IV .Q6H40M [facility] Stop: 04/08/19 07:54 Ketorolac Tromethamine (Toradol) 30 mg IVP Q6 PRN PRN Reason: Pain, severe (8-10) Last Admin: 04/07/19 02:08 Dose: 30 mg Ketorolac Tromethamine (Toradol) 15 mg IM Q6 PRN PRN Reason: Pain, moderate (4-7) Levothyroxine Sodium (Synthroid) 50 mcg PO DAILY [facility] Ondansetron HCl (Zofran Inj) 4 mg IVP Q6 PRN PRN Reason: Nausea/Vomiting Pantoprazole Sodium (Protonix Inj) 40 mg IVP DAILY [facility] - Labs Labs: 04/07/19 05:20 04/07/19 05:20 PT 13.9 Seconds (9.8-13.1) H 04/06/19 11:40 INR 1.2 04/06/19 11:40 APTT 32.3 Seconds (25.6-37.1) 04/06/19 11:40 - Constitutional Appears: In Acute Distress - Eye Exam Eye Exam: Normal appearance - ENT Exam ENT Exam: Mucous Membranes Moist - Respiratory Exam Respiratory Exam: Clear to Ausculation Bilateral, NORMAL BREATHING PATTERN. absent: Accessory Muscle Use, Chest Wall Tenderness, Decreased Breath Sounds, Prolonged Expiratory Phase, Rales, Rhonchi, Wheezes, Respiratory Distress, Stridor - Cardiovascular Exam Cardiovascular Exam: +S1, +S2 - GI/Abdominal Exam GI & Abdominal Exam: Soft, Tenderness (Generalized abdominal tenderness, localized in LLQ. ), Hyperactive Bowel Sounds (Left lower quadrant ). absent: Distended, Firm, Guarding, Rigid, Mass, Rebound - Extremities Exam Extremities Exam: Normal Capillary Refill, Normal Inspection. absent: Calf Tenderness, Pedal Edema, Tenderness - Neurological Exam Neurological Exam: Alert, Awake, Oriented x3 - Skin Skin Exam: Dry, Intact, Normal Color, Warm Assessment and Plan - Assessment and Plan (Free Text) Assessment: 63 yo female with history of COPD, hypercholesterolemia, hyperlipidemia, hypothyroidism presented to the ED with diffused abdominal pain admitted for Small bowel obstruction. Plan: Small bowel obstruction - Septic on admission - Leukocytosis of 14.0 today - afebrile; tachycardic - NPO - IVF - D5W- NSat 1 and 1/2 maintaince - NGT placed- low continous suction - CT scan: possible mechanical SBO. Brower colitis with extensive enteritis invol ving predominantly the ileum. Mural thickening of gastric antrum. Possible infectious enterocolitis versus inflammatory. - Surgical consult- Dr. Latham - continue NPO; abdominal xray; GI consult- p ossible IBD - Zofran for nausea - Pain medications - Abx: Zosyn (day 2 ) Hyponatremia - Na: 130 - IVF - D5W - NS - repeat BMP tomorrow Hypokalemia - 2.9 - KCL 20 mEq x3 bags - Follow up repeat BMP Hypothyroidism - C/W home medication: Levothyroxine 50mcg daily - Repeat TSH : 3.71 COPD - C/W home medication Ventolin at this time Hyperlipidemia and hypercholesterolemia - Home medication: Lovastatin 10mg - Not formulary, changed to atorvastatin low dose while in hospital GI prophylaxis - Protonix 40mg IVP daily DVT prophylaxis - SCD's, Lovenox daily Full code
[2019-04-07] MEDS: Enoxaparin 40 mg Syringe SC SCH (08:58)
[2019-04-07] MEDS ORDERED: Levothyroxine 50 MCG TAB PO SCH (09:00)
--- NOTE | 2019-04-07 09:12 | RAD ---
Date of service: 04/07/2019 HISTORY: SBO, comparison COMPARISON: None available. TECHNIQUE: 1 view obtained. FINDINGS: BOWEL: There is improvement in the number of dilated small bowel loops identified filled with gas with nasogastric tube placed once again. The tip of the nasogastric tube terminates in the gastric viscus however the side hole is in the esophagogastric junction and advancement further into the stomach is advised several cm. Confirmation abdomen radiograph recommended. Overall bowel gas pattern remains suspicious for distal small bowel obstruction though given the amount of slightly increased gas within right hemicolon and the rectum, hepatic could reflect intermittent or partial distal small bowel obstruction as well. Finally, an ileus is not completely excluded. No free intra peritoneal gas collection or suspicious intra-abdominal calcifications are identified. BONES: Normal. OTHER FINDINGS: None. IMPRESSION: Mild improvement in the number of distended small bowel loops though significantly distended small bowel remains in the abdomen and upper pelvis. Difficult to differentiate high-grade distal small-bowel obstruction from partial or intermittent small bowel obstruction/ileus pattern. No free intra peritoneal gas collection identified. Nasogastric tube terminates at the gastric viscus however the side hole is at the distal esophagogastric junction and advancement of the catheter further into the stomach several cm is advised follow-up by confirmation radiography.
[2019-04-07] MEDS: Potassium Chloride 20 mEq 100 ML IVPB SCH ×3 (10:28→16:03)
[2019-04-07] MEDS: Potassium Chl 20 mEq in D5-NS 1,000 ML IV SCH ×3 (11:19→18:04)
[2019-04-07 12:43] LABS: BLOOD UREA NITROGEN 12 mg/dl (7-17); CALCIUM 7.6 mg/dL (8.4-10.2); GFR NON-AFRICAN AMERICAN > 60
[2019-04-07] MEDS ORDERED: Potassium Chloride 20 mEq/15 ml LIQ UD PO ONE (12:43)
[2019-04-07 14:52] LABS: FOLATE 15.9 ng/mL
[2019-04-07 18:14] LABS: BLOOD UREA NITROGEN 11 mg/dl (7-17); CALCIUM 7.7 mg/dL (8.4-10.2); GFR NON-AFRICAN AMERICAN > 60
--- NOTE | 2019-04-07 23:47 | CP.PCM.CON ---
History of Present Illness - History of Present Illness History of Present Illness: 63 yo female on opiates for chronic back pain admitted with abdominal pain, nausea and vomiting. She states she uses codeiine daily. 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 She states that today she has passed small amount of gas and has had small bowel movements. Initially had NG tube placed but it was removed earlier today. Review of Systems - Constitutional Constitutional: absent: Chills - EENT Ears: absent: Decreased Hearing Nose/Mouth/Throat: absent: Nasal Congestion - Cardiovascular Cardiovascular: absent: Chest Pain - Respiratory Respiratory: absent: Cough - Gastrointestinal Gastrointestinal: As Per HPI - Genitourinary Genitourinary: absent: Change in Urinary Stream Past Patient History - Infectious Disease Hx of Infectious Diseases: None - Past Medical History & Family History Past Medical History?: Yes - Past Social History Smoking Status: Heavy Smoker > 10 Cigarettes Daily - CARDIAC Hx Cardiac Disorders: Yes Hx Hypercholesterolemia: Yes - PULMONARY Hx Respiratory Disorders: Yes Hx Chronic Obstructive Pulmonary Disease (COPD): Yes - NEUROLOGICAL Hx Neurological Disorder: No - RENAL Hx Chronic Kidney Disease: No - ENDOCRINE/METABOLIC Hx Hypothyroidism: Yes - HEMATOLOGICAL/ONCOLOGICAL Hx Blood Disorders: No Hx AIDS: No (denies) Hx Human Immunodeficiency Virus (HIV): No (denies) - INTEGUMENTARY Hx Dermatological Problems: No - MUSCULOSKELETAL/RHEUMATOLOGICAL Hx Falls: No (denies) - GENITOURINARY/GYNECOLOGICAL Hx Genitourinary Disorders: No - PSYCHIATRIC Hx Psychophysiologic Disorder: No Hx Substance Use: No (denies) - SURGICAL HISTORY Hx Coronary Artery Bypass Graft: No - ANESTHESIA Hx Anesthesia: Yes Hx Anesthesia Reactions: No Hx Malignant Hyperthermia: No Has any member of the family had a problem w/ anesthesia?: No Meds Allergies/Adverse Reactions: Allergies Allergy/AdvReac Type Severity Reaction Status Date / Time aspirin Allergy VOMITING Verified 04/06/19 10:12 - Medications Medications: Current Medications Acetaminophen (Tylenol 650mg/20.3ml Solution Ud) 650 mg NG Q6 PRN PRN Reason: Fever >100.4 F Albuterol (Ventolin Hfa 90 Mcg/Actuation (8 G)) 2 puff IH Q4 PRN PRN Reason: Shortness of Breath Atorvastatin Calcium (Lipitor) 10 mg PO DAILY [facility] Last Admin: 04/07/19 08:58 Dose: 10 mg Enalapril Maleate (Vasotec) 5 mg PO DAILY [facility] Last Admin: 04/07/19 10:28 Dose: 5 mg Enoxaparin Sodium (Lovenox) 40 mg SC DAILY [facility]; Protocol Last Admin: 04/07/19 08:58 Dose: 40 mg Piperacillin Sod/Tazobactam (Sod 4.5 gm/ Sodium Chloride) 100 mls @ 100 mls/hr IVPB Q8@0500,1300,2100 [facility]; Protocol Last Admin: 04/07/19 21:04 Dose: 100 mls/hr Iron Sucrose 100 mg/ Sodium (Chloride) 105 mls @ 105 mls/hr IVPB DAILY [facility] Stop: 04/09/19 23:59 Last Admin: 04/07/19 18:04 Dose: 105 mls/hr Potassium Chloride/Dextrose/Sod Cl (Potassium Chl 20 Meq In D5-Ns) 1,000 mls @ 150 mls/hr IV .Q6H40M [facility] Last Admin: 04/07/19 18:04 Dose: 150 mls/hr Ketorolac Tromethamine (Toradol) 30 mg IVP Q6 PRN PRN Reason: Pain, severe (8-10) Last Admin: 04/07/19 13:31 Dose: 30 mg Ketorolac Tromethamine (Toradol) 15 mg IM Q6 PRN PRN Reason: Pain, moderate (4-7) Levothyroxine Sodium (Synthroid) 50 mcg PO DAILY [facility] Last Admin: 04/07/19 08:58 Dose: 50 mcg Ondansetron HCl (Zofran Inj) 4 mg IVP Q6 PRN PRN Reason: Nausea/Vomiting Pantoprazole Sodium (Protonix Inj) 40 mg IVP DAILY [facility] Last Admin: 04/07/19 08:58 Dose: 40 mg Physical Exam - Constitutional Appears: No Acute Distress, Older Than Stated Age - Head Exam Head Exam: ATRAUMATIC - Eye Exam Eye Exam: Normal appearance Pupil Exam: PERRL - ENT Exam ENT Exam: Normal Exam - Neck Exam Neck exam: Positive for: Normal Inspection - Respiratory Exam Respiratory Exam: Clear to Auscultation Bilateral - Cardiovascular Exam Cardiovascular Exam: REGULAR RHYTHM, +S1, +S2 - GI/Abdominal Exam GI & Abdominal Exam: Distended. absent: Tenderness Results - Vital Signs Recent Vital Signs: Last Vital Signs Temp 97.7 F 04/07/19 16:05 Pulse 75 04/07/19 16:05 Resp 19 04/07/19 16:05 BP 154/74 H 04/07/19 16:05 Pulse Ox 95 04/07/19 16:05 - Labs Result Diagrams: 04/07/19 05:20 04/07/19 17:35 Labs: Laboratory Results - last 24 hr 04/07/19 04/07/19 04/07/19 02:30 05:20 05:20 WBC 14.0 H RBC 3.27 L Hgb 9.9 L Hct 29.0 L MCV 88.5 MCH 30.1 MCHC 34.0 RDW 13.8 Plt Count 306 MPV 8.0 Neut % (Auto) 85.0 H Lymph % (Auto) 5.7 L [place] % (Auto) 7.3 Eos % (Auto) 1.7 Baso % (Auto) 0.3 Neut # (Auto) 11.9 H Lymph # (Auto) 0.8 L [place] # (Auto) 1.0 H Eos # (Auto) 0.2 Baso # (Auto) 0.0 Retic Count Sodium 130 L Potassium 2.9 L Chloride 96 L Carbon Dioxide 22 Anion Gap 15 BUN 15 Creatinine 0.6 L Est GFR ( Amer) > 60 Est GFR (Non-Af Amer) > 60 POC Glucose (mg/dL) Random Glucose 113 H Calcium 7.7 L Magnesium Transferrin Ferritin 390.0 H Total Bilirubin 0.8 AST 23 ALT 34 Alkaline Phosphatase 114 Troponin I < 0.0120 Total Protein 6.4 Albumin 3.1 L Globulin 3.3 Albumin/Globulin Ratio 0.9 L Vitamin B12 > 1000 H Folate 15.9 TSH 3rd Generation 3.71 04/07/19 04/07/19 04/07/19 05:20 05:20 05:25 WBC RBC Hgb Hct MCV MCH MCHC RDW Plt Count MPV Neut % (Auto) Lymph % (Auto) [place] % (Auto) Eos % (Auto) Baso % (Auto) Neut # (Auto) Lymph # (Auto) [place] # (Auto) Eos # (Auto) Baso # (Auto) Retic Count 1.6 H Sodium Potassium Chloride Carbon Dioxide Anion Gap BUN Creatinine Est GFR ( Amer) Est GFR (Non-Af Amer) POC Glucose (mg/dL) 106 Random Glucose Calcium Magnesium Transferrin 113.69 L Ferritin Total Bilirubin AST ALT Alkaline Phosphatase Troponin I Total Protein Albumin Globulin Albumin/Globulin Ratio Vitamin B12 Folate TSH 3rd Generation 04/07/19 04/07/19 04/07/19 08:41 11:30 11:46 WBC RBC Hgb Hct MCV MCH MCHC RDW Plt Count MPV Neut % (Auto) Lymph % (Auto) [place] % (Auto) Eos % (Auto) Baso % (Auto) Neut # (Auto) Lymph # (Auto) [place] # (Auto) Eos # (Auto) Baso # (Auto) Retic Count Sodium 129 L Potassium 3.3 L Chloride 99 Carbon Dioxide 19 L Anion Gap 14 BUN 12 Creatinine 0.5 L Est GFR ( Amer) > 60 Est GFR (Non-Af Amer) > 60 POC Glucose (mg/dL) 125 H Random Glucose 111 H Calcium 7.6 L Magnesium 1.8 Transferrin Ferritin Total Bilirubin AST ALT Alkaline Phosphatase Troponin I Total Protein Albumin Globulin Albumin/Globulin Ratio Vitamin B12 Folate TSH 3rd Generation 04/07/19 04/07/19 16:06 17:35 WBC RBC Hgb Hct MCV MCH MCHC RDW Plt Count MPV Neut % (Auto) Lymph % (Auto) [place] % (Auto) Eos % (Auto) Baso % (Auto) Neut # (Auto) Lymph # (Auto) [place] # (Auto) Eos # (Auto) Baso # (Auto) Retic Count Sodium 130 L Potassium 4.3 Chloride 101 Carbon Dioxide 19 L Anion Gap 14 BUN 11 Creatinine 0.5 L Est GFR ( Amer) > 60 Est GFR (Non-Af Amer) > 60 POC Glucose (mg/dL) 120 H Random Glucose 111 H Calcium 7.7 L Magnesium Transferrin Ferritin Total Bilirubin AST ALT Alkaline Phosphatase Troponin I Total Protein Albumin Globulin Albumin/Globulin Ratio Vitamin B12 Folate TSH 3rd Generation - Imaging and Cardiology CT scan - abdomen Status: Image reviewed by me, Report reviewed by me Abdominal x-ray Status: Image reviewed by me, Report reviewed by me Assessment & Plan (1) Abdominal pain Assessment and Plan: Patient with abdominal distention. Imaging results /w partial SBO vs enterocolitis. Patient receiving Zosyn. Will follow with you. Status: Acute
[2019-04-08] MEDS: Potassium Chl 20 mEq in D5-NS 1,000 ML IV SCH (04:00)
[2019-04-08] MEDS: Piperacillin/Tazobact 4.5 GM in Sodium Chloride 0.9% 100 ML IVPB SCH (05:08)
--- NOTE | 2019-04-08 06:29 | CP.PCM.PN ---
Subjective - Date & Time of Evaluation Date of Evaluation: 04/08/19 Time of Evaluation: 04:55 - Subjective Subjective: General Surgery Note for Dr. Latham Patient seen and examined at bedside. No acute event overnight. Patient states pain has improved. She admits flatus and one BM yesterday. She has not been OOB ambulating. She is asking for food and when she can leave. Denies fever/chills or nausea/vomiting. Objective - Vital Signs/Intake and Output Vital Signs (last 24 hours): Temp Pulse Resp BP Pulse Ox 97.9 F 84 18 152/78 H 95 04/07/19 23:59 04/07/19 23:59 04/07/19 23:59 04/07/19 23:59 04/07/19 23:59 Intake and Output: 04/07/19 04/08/19 18:59 06:59 Intake Total 3100 Output Total 170 Balance 2930 - Medications Medications: Current Medications Acetaminophen (Tylenol 650mg/20.3ml Solution Ud) 650 mg NG Q6 PRN PRN Reason: Fever >100.4 F Albuterol (Ventolin Hfa 90 Mcg/Actuation (8 G)) 2 puff IH Q4 PRN PRN Reason: Shortness of Breath Atorvastatin Calcium (Lipitor) 10 mg PO DAILY [facility] Last Admin: 04/07/19 08:58 Dose: 10 mg Enalapril Maleate (Vasotec) 5 mg PO DAILY [facility] Last Admin: 04/07/19 10:28 Dose: 5 mg Enoxaparin Sodium (Lovenox) 40 mg SC DAILY [facility]; Protocol Last Admin: 04/07/19 08:58 Dose: 40 mg Piperacillin Sod/Tazobactam (Sod 4.5 gm/ Sodium Chloride) 100 mls @ 100 mls/hr IVPB Q8@0500,1300,2100 [facility]; Protocol Last Admin: 04/08/19 05:08 Dose: 100 mls/hr Iron Sucrose 100 mg/ Sodium (Chloride) 105 mls @ 105 mls/hr IVPB DAILY [facility] Stop: 04/09/19 23:59 Last Admin: 04/07/19 18:04 Dose: 105 mls/hr Potassium Chloride/Dextrose/Sod Cl (Potassium Chl 20 Meq In D5-Ns) 1,000 mls @ 150 mls/hr IV .Q6H40M [facility] Last Admin: 04/08/19 04:00 Dose: 150 mls/hr Ketorolac Tromethamine (Toradol) 30 mg IVP Q6 PRN PRN Reason: Pain, severe (8-10) Last Admin: 04/07/19 13:31 Dose: 30 mg Ketorolac Tromethamine (Toradol) 15 mg IM Q6 PRN PRN Reason: Pain, moderate (4-7) Levothyroxine Sodium (Synthroid) 50 mcg PO DAILY@0630 [facility] Last Admin: 04/08/19 06:07 Dose: 50 mcg Ondansetron HCl (Zofran Inj) 4 mg IVP Q6 PRN PRN Reason: Nausea/Vomiting Pantoprazole Sodium (Protonix Inj) 40 mg IVP DAILY [facility] Last Admin: 04/07/19 08:58 Dose: 40 mg - Labs Labs: 04/07/19 05:20 04/07/19 17:35 PT 13.9 Seconds (9.8-13.1) H 04/06/19 11:40 INR 1.2 04/06/19 11:40 APTT 32.3 Seconds (25.6-37.1) 04/06/19 11:40 - Additional Findings Additional findings: - Constitutional Appears: Non-toxic, No Acute Distress - Head Exam Head Exam: ATRAUMATIC, NORMOCEPHALIC - Eye Exam Eye Exam: EOMI - ENT Exam ENT Exam: Mucous Membranes Dry - Respiratory Exam Respiratory Exam: NORMAL BREATHING PATTERN. absent: Respiratory Distress - Cardiovascular Exam Cardiovascular Exam: REGULAR RHYTHM. absent: Tachycardia - GI/Abdominal Exam GI & Abdominal Exam: Distended, Soft. absent: Guarding, Rebound, Tenderness - Neurological Exam Neurological Exam: Alert, Awake, Oriented x3 - Psychiatric Exam Psychiatric exam: Normal Affect, Normal Mood - Skin Skin Exam: Dry, Warm Assessment and Plan - Assessment and Plan (Free Text) Assessment: 63 F with abdominal pain secondary to ileus possible obstruction and diffuse enterocolitis Plan: -CLD, ADAT -OOB/ambulation -monitor for bowel function -IVF -IV abx -replete electrolytes as needed -f/u GI recommendations -Discussed with Dr. Latham, further recs per attending Wolf Maldonado PGY2
[2019-04-08 06:30] LABS: BASO % 0.2 % (0.0-2.0); EOS # 0.2 K/uL (0.0-0.7); EOS % 1.6 % (0.0-4.0); HEMOGLOBIN 9.7 g/dL (12.0-16.0); LYMPH # 1.1 K/uL (1.0-4.3); MEAN CELL VOLUME 87.9 fl (81.0-99.0); MEAN CORPUSCULAR HEMOGLOBIN 29.7 pg (27.0-31.0); MEAN CORPUSCULAR HGB CONC 33.8 g/dL (33.0-37.0); MEAN PLATELET VOLUME 7.6 fl (7.2-11.7); MONO # 1.4 K/uL (0.0-0.8); MONO % 12.3 % (0.0-10.0); NEUT # 8.7 K/uL (1.8-7.0); NEUT % 75.9 % (50.0-75.0); RBC 3.27 Mil/uL (3.80-5.20); RED CELL DISTRIBUTION WIDTH 13.7 % (11.5-14.5); WHITE BLOOD COUNT 11.4 K/uL (4.8-10.8)
[2019-04-08] MEDS ORDERED: Levothyroxine 50 MCG TAB PO SCH (06:30)
[2019-04-08 06:43] LABS: BLOOD UREA NITROGEN 7 mg/dl (7-17); CALCIUM 7.8 mg/dL (8.4-10.2); GFR NON-AFRICAN AMERICAN > 60
[2019-04-08] MEDS ORDERED: Magnesium Sulfate 2 gm/50 ml 2 GM/50 ML BAG IVPB ONE (07:23)
[2019-04-08 07:39] VITALS: BP 150/78; PULSE 78; RESP 20; TEMP 97.5; O2SAT 99
[2019-04-08] MEDS: Enoxaparin 40 mg Syringe SC SCH (08:09)
[2019-04-08] MEDS ORDERED: Potassium & Sodium Phosphate PO SCH (09:00)
--- NOTE | 2019-04-08 12:17 | CP.PCM.DIS ---
Provider - Provider Date of Admission: 04/06/19 14:13 Attending physician: Lauro Talbert MD Consults: 04/06/19 14:14 Surgery [General Surgery Consult] Stat Comment: Consulting Provider: Thanh Ackerman Consulting Physician: Thanh Ackerman Reason for Consult: bowel obstruction, abd pain 04/06/19 17:24 Gastroenterology Consult Routine Comment: Consulting Provider: Magan Montes Consulting Physician: Magan Montes Reason for Consult: suspected mechanical bowel obstruction Time Spent in preparation of Discharge (in minutes): 30 Diagnosis - Discharge Diagnosis (1) Small bowel obstruction Status: Acute Comment: - Septic on admission with leukocytosis with bands of 20. - IVF - D5W- NSat 1 and 1/2 maintaince. - NGT placed- low continous suction , tolerated liquid diet. - CT scan: possible mechanical SBO. Brower colitis with extensive enteritis involving predominantly the ileum. Mural thickening of gastric antrum. Possible infectious enterocolitis versus inflammatory. - Surgical consult- Dr. Latham. - Zofran for nausea. - Pain medications. - recieved 3 days of [facility] Course - Lab Results Lab Results: Micro Results 04/06/19 11:30 Blood Blood Culture - Preliminary NO GROWTH AFTER 48 HOURS 04/06/19 11:40 Blood Blood Culture - Preliminary NO GROWTH AFTER 48 HOURS 04/06/19 15:48 Urine,Clean Catch Urine Culture - Final No Growth (<1,000 CFU/ML) Most Recent Lab Values WBC 11.4 K/uL (4.8-10.8) H 04/08/19 05:35 RBC 3.27 Mil/uL (3.80-5.20) L 04/08/19 05:35 Hgb 9.7 g/dL (12.0-16.0) L 04/08/19 05:35 Hct 28.7 % (34.0-47.0) L 04/08/19 05:35 MCV 87.9 fl (81.0-99.0) 04/08/19 05:35 MCH 29.7 pg (27.0-31.0) 04/08/19 05:35 MCHC 33.8 g/dL (33.0-37.0) 04/08/19 05:35 RDW 13.7 % (11.5-14.5) 04/08/19 05:35 Plt Count 316 K/uL (130-400) 04/08/19 05:35 MPV 7.6 fl (7.2-11.7) 04/08/19 05:35 Neut % (Auto) 75.9 % (50.0-75.0) H 04/08/19 05:35 Lymph % (Auto) 10.0 % (20.0-40.0) L 04/08/19 05:35 [place] % (Auto) 12.3 % (0.0-10.0) H 04/08/19 05:35 Eos % (Auto) 1.6 % (0.0-4.0) 04/08/19 05:35 Baso % (Auto) 0.2 % (0.0-2.0) 04/08/19 05:35 Neut # (Auto) 8.7 K/uL (1.8-7.0) H 04/08/19 05:35 Lymph # (Auto) 1.1 K/uL (1.0-4.3) 04/08/19 05:35 [place] # (Auto) 1.4 K/uL (0.0-0.8) H 04/08/19 05:35 Eos # (Auto) 0.2 K/uL (0.0-0.7) 04/08/19 05:35 Baso # (Auto) 0.0 K/uL (0.0-0.2) 04/08/19 05:35 Neutrophils % (Manual) 71 % (42-75) 04/06/19 11:40 Band Neutrophils % 20 % (0-2) H* 04/06/19 11:40 Lymphocytes % (Manual) 3 % (20-50) L 04/06/19 11:40 Monocytes % (Manual) 4 % (0-10) 04/06/19 11:40 Eosinophils % (Manual) 2 % (0-7) 04/06/19 11:40 Platelet Estimate Normal (NORMAL) 04/06/19 11:40 Large Platelets Present 04/06/19 11:40 Anisocytosis (manual) Slight 04/06/19 11:40 Retic Count 1.6 % (0.5-1.5) H 04/07/19 05:20 PT 13.9 Seconds (9.8-13.1) H 04/06/19 11:40 INR 1.2 04/06/19 11:40 APTT 32.3 Seconds (25.6-37.1) 04/06/19 11:40 pO2 43 mm/Hg (30-55) 04/06/19 11:47 VBG pH 7.45 (7.32-7.43) H 04/06/19 11:47 VBG pCO2 40 mmHg (40-60) 04/06/19 11:47 VBG HCO3 27.2 mmol/L 04/06/19 11:47 VBG Total CO2 29.0 mmol/L (22-28) H 04/06/19 11:47 VBG O2 Sat (Calc) 83.1 % (40-65) H 04/06/19 11:47 VBG Base Excess 3.5 mmol/L (0.0-2.0) H 04/06/19 11:47 VBG Potassium 3.7 mmol/L (3.6-5.2) 04/06/19 11:47 Sodium 130.0 mmol/L (132-148) L 04/06/19 11:47 Chloride 96.0 mmol/L (98-107) L 04/06/19 11:47 Glucose 98 mg/dL (65-105) 04/06/19 11:47 Lactate 1.1 mmol/L (0.7-2.1) 04/06/19 11:47 FiO2 21.0 % 04/06/19 11:47 Sodium 130 mmol/l (132-148) L 04/08/19 05:35 Potassium 3.4 MMOL/L (3.6-5.0) L 04/08/19 05:35 Chloride 100 mmol/L (98-107) 04/08/19 05:35 Carbon Dioxide 20 mmol/L (22-30) L 04/08/19 05:35 Anion Gap 13 (10-20) 04/08/19 05:35 BUN 7 mg/dl (7-17) 04/08/19 05:35 Creatinine 0.4 mg/dl (0.7-1.2) L 04/08/19 05:35 Est GFR ( Amer) > 60 04/08/19 05:35 Est GFR (Non-Af Amer) > 60 04/08/19 05:35 POC Glucose (mg/dL) 126 mg/dL (65-110) H 04/08/19 10:40 Random Glucose 120 mg/dL (65-105) H 04/08/19 05:35 Calcium 7.8 mg/dL (8.4-10.2) L 04/08/19 05:35 Phosphorus 1.4 mg/dl (2.5-4.5) L 04/08/19 05:35 Magnesium 1.5 MG/DL (1.6-2.3) L 04/08/19 05:35 Iron 23 ug/dL (37-170) L 04/06/19 20:30 TIBC 192 ug/dL (250-450) L 04/06/19 20:30 % Saturation 12 % (20-55) L 04/06/19 20:30 Transferrin 113.69 mg/dL (206-381) L 04/07/19 05:20 Ferritin 390.0 ng/Ml (11.1-264.0) H 04/07/19 05:20 Total Bilirubin 0.8 mg/dl (0.2-1.3) 04/07/19 05:20 AST 23 U/L (14-36) 04/07/19 05:20 ALT 34 U/L (9-52) 04/07/19 05:20 Alkaline Phosphatase 114 U/L (38-126) 04/07/19 05:20 Troponin I < 0.0120 ng/mL (0.00-0.120) 04/07/19 02:30 Total Protein 6.4 G/DL (6.3-8.2) 04/07/19 05:20 Albumin 3.1 g/dL (3.5-5.0) L 04/07/19 05:20 Globulin 3.3 gm/dL (2.2-3.9) 04/07/19 05:20 Albumin/Globulin Ratio 0.9 (1.0-2.1) L 04/07/19 05:20 Lipase < 10 U/L (23-300) L 04/06/19 11:40 Carcinoembryonic Ag 6.7 ng/mL (0-3.0) H 04/08/19 08:44 Vitamin B12 > 1000 pg/mL (239-931) H 04/07/19 05:20 Folate 15.9 ng/mL 04/07/19 05:20 TSH 3rd Generation 3.71 mIU/ML (0.46-4.68) 04/07/19 05:20 Venous Blood Potassium 3.7 mmol/L (3.6-5.2) 04/06/19 11:47 Urine Color Yellow (YELLOW) 04/06/19 15:48 Urine Clarity Slighty-cloudy (Clear) 04/06/19 15:48 Urine pH 7.0 (5.0-8.0) 04/06/19 15:48 Ur Specific [place] 1.025 (1.003-1.030) 04/06/19 15:48 Urine Protein 100 mg/dL (NEGATIVE) 04/06/19 15:48 Urine Glucose (UA) Neg mg/dL (NEGATIVE) 04/06/19 15:48 Urine Ketones Negative mg/dL (NEGATIVE) 04/06/19 15:48 Urine Blood Negative (NEGATIVE) 04/06/19 15:48 Urine Nitrate Negative (NEGATIVE) 04/06/19 15:48 Urine Bilirubin Negative (NEGATIVE) 04/06/19 15:48 Urine Urobilinogen 4.0 mg/dL (0.2-1.0) H 04/06/19 15:48 Ur Leukocyte Esterase Neg [place]/uL (Negative) 04/06/19 15:48 Urine RBC (Auto) 2 /hpf (0-3) 04/06/19 15:48 Urine Microscopic WBC 2 /hpf (0-5) 04/06/19 15:48 Ur Squamous Epith Cells 4 /hpf (0-5) 04/06/19 15:48 Urine Bacteria Occ (<OCC) H 04/06/19 15:48 - Hospital Course Hospital Course: 63 yo female with history of COPD, hypercholesterolemia, hyperlipidemia, hypothyroidism presented to the ED with diffused abominal pain admitted for Small bowel obstruction. On admission patient met sepsis criteria with leukocytosis of 14.1 with 20 bands, tachycardia. Patient was admitted to Med/Surg, placed NPO and an NGT was placed by surgery consult. Patient was appropriately IVF resuscitated. NGT had minimal drainaged and so was removed. GI consult was requested. CT scan demonstrated possible mechanical SBO and pancolitis with extensive enteritis involving the ileum. Patient signed out AMA understanding the risks behind not obtaining appropriate treatment. Prescriptions for cipro and flagyl given to patient at this time. Discharge Exam - Head Exam Head Exam: ATRAUMATIC - Eye Exam Eye Exam: Normal appearance - ENT Exam ENT Exam: Mucous Membranes Moist - Respiratory Exam Respiratory Exam: Clear to PA & Lateral, NORMAL BREATHING PATTERN, UNREMARKABLE. absent: Accessory Muscle Use, Chest Wall Tenderness, Decreased Breath Sounds, Prolonged Expiratory Phase, Rales, Rhonchi, Wheezes, Respiratory Distress, Stridor - Cardiovascular Exam Cardiovascular Exam: +S1, +S2 - GI/Abdominal Exam GI & Abdominal Exam: Soft, Tenderness (Left quadrant tenderness). absent: Distended, Firm, Guarding, Rebound, Rigid Additional comments: Hypoactive bowel sounds - Extremities Exam Extremities exam: normal capillary refill, normal inspection, pedal pulses present - Neurological Exam Neurological exam: Alert, Oriented x3 - Skin Skin Exam: Dry, Intact, Normal Color, Warm Discharge Plan - Discharge Medications Prescriptions: Ciprofloxacin/Ciprofloxa HCl [Ciprofloxacin] 500 mg PO Q12 #14 ter metroNIDAZOLE [Flagyl] 500 mg PO Q8H #21 tab - Follow Up Plan Condition: FAIR Disposition: AGAINST MEDICAL ADVICE Patient education suggested?: Yes Instructions: Nausea and Vomiting, Adult (DC), Small Bowel Obstruction (DC) Against Medical Advice - AMA Patient Left Against Medical Advice: The patient declines admission to the hospital and wishes to leave Med/Surg. This action is against my medical advice. This decision was made with informed refusal. The patient was told that admission to the hospital is necessary. Explanation of the reasons why were discussed. The risks of leaving were explained to the patient and include, but are not limited to, worsening of known or currently unknown conditions, permanent disability and from undiagnosed or untreated conditions. The patient has the capacity to make this informed decision and understands my explanation of the current medical problem and risks of leaving. The patient voluntarily accepts these risks and signed an AMA form documenting our conversation. The patient was given the opportunity to ask questions and reconsider. The patient was encouraged to return to the Emergency Department at any time for further care.
== END 2019-04-08 11:30 | disposition left against medical advice (07) | DRG 901 ==
LOC: H.ER 10:01 → H.ERHOLD 14:13 → H.MEDSURG1 17:19
PROVIDERS: ADMIT Hospitalist; ATTEND Hospitalist
DX: A41.9 Sepsis, unspecified organism (principal); E87.6 Hypokalemia; E87.1 Hypo-osmolality and hyponatremia; J43.9 Emphysema, unspecified; K56.609 Unspecified intestinal obstruction, unspecified as to partial versus complete obstruction; K51.00 Ulcerative (chronic) pancolitis without complications; E86.9 Volume depletion, unspecified; G89.29 Other chronic pain; D50.9 Iron deficiency anemia, unspecified; E03.9 Hypothyroidism, unspecified; I10 Essential (primary) hypertension; E78.5 Hyperlipidemia, unspecified; E78.00 Pure hypercholesterolemia, unspecified; F17.210 Nicotine dependence, cigarettes, uncomplicated